=== PATIENT | female | born 1970 | race Caucasian/White ===

== ENCOUNTER 2016-09-16 15:55 | Emergency (ER) | payer BC, OTHER, MEDICARE ==
[~2016-09-16] VITALS: Ht 170.2 cm; Wt 102.1 kg
[~2016-09-16 15:55] MED LIST: /LAMO10TA PO; /METO5TA PO; /ONDA4TA PO; /PREG50CA PO; ABIL10TA PO; ABIL15TA PO; ABIL15TA2 PO; ABIL1TAB7 PO; ABIL2TAB PO; ABIL400I IM; AMBI5TAB PO; AMBI6.25 PO; AMIT PO; ANTI25TA PO; ASCO25TA PO; ATIV0.5T3 PO; AUGM875T27 PO; B-12100010 PO; BUSP15TA47 PO; BUSP1TAB PO; BUSP5TA PO; CARA1TAB2 PO; CLON0.5T PO; COLA50CA3 PO; CYCL5TA PO; CYMB1CAP PO; CYMB60CA3 PO; DEPA500T2 PO; DOCU10ELUD PO; DRIS50002 PO; DULO1CAP3 PO; DULO30CA PO; EFFE150C; FERR140T PO; FERR324T2 PO; FERR325T PO; FLAG500T PO; FLUO20CA8 PO; FLUR15CA14 PO; GABA-283 PO; GABA100C PO; HYDR-3713 PO; HYDR-3716 PO; HYDR-3719 PO; HYDR-4274 PO; HYDR25T PO; HYDRO50TAB PO; IBUP-1114 PO; IRON65TA PO; KLON1TAB PO; LAMI25TA PO; LAMICTAL PO; LAMO10TA PO; LITH1TAB PO; LITH1TAB4 PO; LYRI300C PO; LYRI75CA PO; MELA0.02 PO; MORP15TA2 PO; MORP15TA39 PO; MULTTAB4 PO; NEUR300C PO; NEUR600T; NEURONTIN PO; NICO21DI26 EXT; NORT10CA2 PO; OLAN10TA2 PO; OLAN15TA PO; OLANZAPINE PO; OPAN5TAB3 PO; OXYC5CAP28 PO; OXYC5TAB2 PO; PAXI10TA2 PO; PAXI20TA3 PO; PERC5TAB PO; PERCOCET PO; PRIL40CA PO; PRIM250T5 PO; PRIM50TA6 PO; ROPI1TAB PO; ROZE8TAB PO; TIZA1POW XX; TIZA2CAP3 PO; TRAZ100T4 PO; TRAZ150T PO; TRAZ50TA2 PO; TRAZ50TA4 PO; VALI10TA PO; VALI5TAB; VALI5TAB PO; VENL25TA2 PO; VENL75CA PO; VIST50CA PO; VITA100L SC; VITA50003 PO; VITA500T3 PO; VITA500T53 PO; VITMTA PO; WELL100T PO; WELLTAB PO; XANA0.5T PO; XANA1TAB2 PO; XANA2TAB2 PO; ZOFR4TAB3 PO; ZOLO100T PO; [UNRECOGNIZED DRUG - CODE] PO
[2016-09-16 16:00] VITALS: BP 146/75
[2016-09-16] MEDS ORDERED: ROPI1TAB PO (16:06)
[2016-09-16] MEDS ORDERED: CLON0.5T PO (16:06)
[2016-09-16] MEDS ORDERED: CYCL5TA PO (16:06)
[2016-09-16 17:27] LABS: MEAN CORPUSCULAR HEMOGLOBIN 24.4 pg (27.0-33.0); MEAN CORPUSCULAR VOLUME 78.7 fl (80.0-96.0); RED CELL DISTRIBUTION WIDTH 13.8 % (11.5-14.5)
[2016-09-16 17:44] LABS: CONTROL LINE HCG INT CTR LINE PRESENT
[2016-09-16 17:47] LABS: CONTROL LINE INT CTR LINE PRESENT; METHADONE URINE NEGATIVE (NEGATIVE); TRICYCLIC ANTIDEPRESS URINE POSITIVE (NEGATIVE)
[2016-09-16 18:01] LABS: ALBUMIN 3.6 GM/DL (3.2-5.2); ALBUMIN/GLOBULIN RATIO 1.13 (1.00-1.93); ALKALINE PHOSPHATASE 99 U/L (45-117); ALT/SGPT 32 U/L (12-78); ANION GAP 9 MEQ/L (8-16); AST/SGOT 15 U/L (15-37); BILIRUBIN,DIRECT < 0.1 MG/DL (0.0-0.2); BILIRUBIN,TOTAL 0.2 MG/DL (0.2-1.0); BLOOD UREA NITROGEN 7 MG/DL (7-18); CALCIUM LEVEL 8.6 MG/DL (8.5-10.1); CARBON DIOXIDE LEVEL 25 MEQ/L (21-32); CHLORIDE LEVEL 107 MEQ/L (98-107); GLOMERULAR FILTRATION RATE > 60.0 (>58); GLUCOSE, FASTING 93 MG/DL (70-105); POTASSIUM SERUM 4.1 MEQ/L (3.5-5.1); SODIUM LEVEL 141 MEQ/L (136-145); TOTAL PROTEIN 6.8 GM/DL (6.4-8.2)
== END 2016-09-16 18:45 | disposition home or self-care (01) ==
LOC: M ED 17:32
DX: F43.20 Adjustment disorder, unspecified (principal); F31.9 Bipolar disorder, unspecified; Z98.84 Bariatric surgery status; Z79.899 Other long term (current) drug therapy; F17.210 Nicotine dependence, cigarettes, uncomplicated
CPT/HCPCS: 36415; 80048; 80076; 80306; 84443; 84703; 85027; 99284; G0480

== ENCOUNTER 2016-09-28 17:03 | Emergency (ER) | payer BC, OTHER, MEDICARE ==
[~2016-09-28] VITALS: Ht 170.2 cm; Wt 104.3 kg
[2016-09-28 18:02] LABS: MEAN CORPUSCULAR HEMOGLOBIN 24.7 pg (27.0-33.0); MEAN CORPUSCULAR HGB CONC 31.1 g/dl (32.0-36.5); MEAN CORPUSCULAR VOLUME 79.6 fl (80.0-96.0); RED CELL DISTRIBUTION WIDTH 15.1 % (11.5-14.5); WHITE BLOOD COUNT 7.4 K/mm3 (4.0-10.0)
[2016-09-28 18:36] LABS: METHADONE URINE NEGATIVE (NEGATIVE)
[2016-09-28 18:44] LABS: ALBUMIN 3.5 GM/DL (3.2-5.2); ALBUMIN/GLOBULIN RATIO 1.09 (1.00-1.93); ALKALINE PHOSPHATASE 87 U/L (45-117); ALT/SGPT 16 U/L (12-78); ANION GAP 7 MEQ/L (8-16); AST/SGOT 11 U/L (15-37); BILIRUBIN,DIRECT < 0.1 MG/DL (0.0-0.2); BILIRUBIN,TOTAL 0.2 MG/DL (0.2-1.0); BLOOD UREA NITROGEN 12 MG/DL (7-18); CALCIUM LEVEL 8.1 MG/DL (8.5-10.1); CARBON DIOXIDE LEVEL 25 MEQ/L (21-32); CHLORIDE LEVEL 111 MEQ/L (98-107); CREATININE FOR GFR 0.74 MG/DL (0.55-1.02); GLOMERULAR FILTRATION RATE > 60.0 (>58); GLUCOSE, FASTING 89 MG/DL (70-105); POTASSIUM SERUM 4.2 MEQ/L (3.5-5.1); SODIUM LEVEL 143 MEQ/L (136-145); TOTAL PROTEIN 6.7 GM/DL (6.4-8.2)
[2016-09-28] MEDS ORDERED: OLANZapine 10 MG TAB PO ONE (21:30)
[2016-09-28] MEDS ORDERED: clonazePAM 0.5 MG TAB PO ONE (21:30)
[2016-09-28] MEDS ORDERED: GABAPENTIN 300 MG CAP PO ONE (21:30)
[2016-09-28] MEDS ORDERED: lamoTRIgine 100MG TAB PO ONE (21:30)
[2016-09-29] MEDS ORDERED: GABAPENTIN 300 MG CAP PO ONE (08:00)
[2016-09-29] MEDS ORDERED: lamoTRIgine 100MG TAB PO ONE (08:00)
[2016-09-29] MEDS ORDERED: OLANZapine 10 MG TAB PO ONE (08:00)
[2016-09-29] MEDS ORDERED: clonazePAM 0.5 MG TAB PO ONE (08:00)
[2016-09-29] MEDS ORDERED: FLUoxetine 20 MG CAP PO ONE (08:00)
[2016-09-29 08:29] VITALS: BP 133/67
--- NOTE | 2016-09-29 09:59 | ECGEPIP ---
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
[2016-09-29] MEDS ORDERED: rOPINIRole 1MG TAB PO SCH (21:00)
== END 2016-09-29 08:31 | disposition short-term general hospital (02) ==
LOC: M ED 18:00
DX: R45.851 Suicidal ideations (principal); F32.9 Major depressive disorder, single episode, unspecified; G25.81 Restless legs syndrome; F17.200 Nicotine dependence, unspecified, uncomplicated; Z88.8 Allergy status to other drugs, medicaments and biological substances; Z79.899 Other long term (current) drug therapy
CPT/HCPCS: 80048; 80076; 80306; 84443; 85027; 93005; 99285; G0480

== ENCOUNTER → 2016-11-02 | Outpatient (REF) | payer OTHER ==
[2016-11-02 18:56] LABS: VITAMIN B12 LEVEL 295 PG/ML (247-911)
[2016-11-02 18:57] LABS: ALBUMIN 3.5 GM/DL (3.2-5.2); ALBUMIN/GLOBULIN RATIO 1.09 (1.00-1.93); ALKALINE PHOSPHATASE 97 U/L (45-117); ALT/SGPT 21 U/L (12-78); ANION GAP 5 MEQ/L (8-16); AST/SGOT 15 U/L (15-37); BILIRUBIN,TOTAL 0.2 MG/DL (0.2-1.0); BLOOD UREA NITROGEN 9 MG/DL (7-18); CALCIUM LEVEL 8.5 MG/DL (8.5-10.1); CARBON DIOXIDE LEVEL 26 MEQ/L (21-32); CHLORIDE LEVEL 110 MEQ/L (98-107); CHOLESTEROL LEVEL 182 MG/DL (<200); CREATININE FOR GFR 0.76 MG/DL (0.55-1.02); FREE T4 1.01 NG/DL (0.76-1.46); GLOMERULAR FILTRATION RATE > 60.0 (>58); GLUCOSE, FASTING 93 MG/DL (70-105); POTASSIUM SERUM 4.6 MEQ/L (3.5-5.1); SODIUM LEVEL 141 MEQ/L (136-145); TOTAL PROTEIN 6.7 GM/DL (6.4-8.2); TRIGLYCERIDES LEVEL 83 MG/DL (<150)
[2016-11-02 19:08] LABS: BASO % 0.2 % (0.0-1.0); EOS # 0.1 K/mm3 (0.0-0.50); EOS % 1.3 % (0.0-3.0); LARGE UNSTAINED CELL # 0.1 K/mm3 (0.0-0.4); LARGE UNSTAINED CELL % 1.6 % (0.0-4.0); LYMPH # 1.4 K/mm3 (1.5-4.5); LYMPH % 21.9 % (24.0-44.0); MEAN CORPUSCULAR HEMOGLOBIN 23.4 pg (27.0-33.0); MEAN CORPUSCULAR HGB CONC 29.8 g/dl (32.0-36.5); MEAN CORPUSCULAR VOLUME 78.3 fl (80.0-96.0); MONO # 0.4 K/mm3 (0.0-0.8); MONO % 6.2 % (0.0-5.0); NEUTROPHILS # 4.5 K/mm3 (1.8-7.7); NEUTROPHILS % 68.8 % (36.0-66.0); PLATELET COUNT, AUTOMATED 431 k/mm3 (150-450); RED CELL DISTRIBUTION WIDTH 15.1 % (11.5-14.5); WHITE BLOOD COUNT 6.5 K/mm3 (4.0-10.0)
[2016-11-02 19:12] LABS: ADD MORPHOLOGY? YES
[2016-11-02 22:07] LABS: ANISOCYTOSIS 1+; MICROCYTOSIS 1+
== END ==
LOC: M SFHCCAPE 08:32
PROVIDERS: ATTEND Physician Assistant
DX: Z98.890 Other specified postprocedural states (principal)

== ENCOUNTER → 2016-11-16 | Outpatient (REF) | payer OTHER, MEDICARE ==
[2016-11-16 13:26] LABS: PERCENT SATURATION 6.2 % (13.2-37.4)
== END ==
LOC: M LAB REF 12:14
PROVIDERS: ATTEND Nurse Practitioner Family
DX: K91.2 Postsurgical malabsorption, not elsewhere classified (principal)

== ENCOUNTER 2017-01-18 15:05 | Emergency (ER) | payer BC, OTHER, MEDICARE ==
[~2017-01-18] VITALS: Ht 170.2 cm; Wt 99.1 kg
[~2017-01-18 15:05] MED LIST changes: -ABIL15TA2 PO; +ABIL1TAB12 PO; -ABIL1TAB7 PO; +ABIL20TA5 PO; -AUGM875T27 PO; +AUGM875T28 PO; +CYCL5TAB PO; +FERR1TAB8 PO; -FERR325T PO; +HYDR-3363 PO; -HYDR-4274 PO; -HYDR25T PO; +HYDR50TA70 PO; -MORP15TA39 PO; +MORP1TAB19 PO; +PAXI20TA29 PO; -PRIM250T5 PO; +PRIM250T8 PO; +TRAZ-136 PO; -TRAZ100T4 PO; +TRAZ50TA11 PO; -TRAZ50TA4 PO; +VITA1CAP40 PO; -VITA50003 PO
[2017-01-18] MEDS ORDERED: MIRA0.5T PO (15:17)
[2017-01-18] MEDS ORDERED: NS 1,000 ML IV ONE (16:00)
[2017-01-18] MEDS ORDERED: ONDANSETRON 4MG/2ML VIAL (J2405) IV ONE (16:00)
[2017-01-18] MEDS ORDERED: methylPREDNISolone INJ 125 MG/2 ML VIAL (J2930) IV ONE (16:00)
[2017-01-18 16:42] LABS: BASO % 0.5 % (0.0-1.0); EOS # 0.1 K/mm3 (0.0-0.50); EOS % 1.4 % (0.0-3.0); LARGE UNSTAINED CELL # 0.1 K/mm3 (0.0-0.4); LARGE UNSTAINED CELL % 1.7 % (0.0-4.0); LYMPH # 1.8 K/mm3 (1.5-4.5); LYMPH % 22.9 % (24.0-44.0); MEAN CORPUSCULAR HEMOGLOBIN 23.1 pg (27.0-33.0); MEAN CORPUSCULAR HGB CONC 30.1 g/dl (32.0-36.5); MEAN CORPUSCULAR VOLUME 76.7 fl (80.0-96.0); MONO # 0.4 K/mm3 (0.0-0.8); MONO % 5.2 % (0.0-5.0); NEUTROPHILS # 5.5 K/mm3 (1.8-7.7); NEUTROPHILS % 68.3 % (36.0-66.0); PLATELET COUNT, AUTOMATED 396 k/mm3 (150-450); RED CELL DISTRIBUTION WIDTH 15.8 % (11.5-14.5)
[2017-01-18 16:46] LABS: ANION GAP 7 MEQ/L (8-16); BLOOD UREA NITROGEN 6 MG/DL (7-18); CALCIUM LEVEL 8.4 MG/DL (8.5-10.1); CARBON DIOXIDE LEVEL 23 MEQ/L (21-32); CHLORIDE LEVEL 111 MEQ/L (98-107); CREATININE FOR GFR 0.77 MG/DL (0.55-1.02); GLOMERULAR FILTRATION RATE > 60.0 (>58); GLUCOSE, FASTING 98 MG/DL (70-105); MAGNESIUM LEVEL 2.4 MG/DL (1.8-2.4); POTASSIUM SERUM 3.8 MEQ/L (3.5-5.1); SODIUM LEVEL 141 MEQ/L (136-145)
[2017-01-18 16:54] VITALS: BP 113/63
[2017-01-18] MEDS ORDERED: PRED20TA PO (16:57)
== END 2017-01-18 17:06 | disposition home or self-care (01) ==
LOC: M ED 15:05
DX: G43.909 Migraine, unspecified, not intractable, without status migrainosus (principal); G25.81 Restless legs syndrome; M54.5 Low back pain; F41.9 Anxiety disorder, unspecified; F33.9 Major depressive disorder, recurrent, unspecified; G62.9 Polyneuropathy, unspecified; Z98.84 Bariatric surgery status; Z79.899 Other long term (current) drug therapy; Z88.8 Allergy status to other drugs, medicaments and biological substances; F17.210 Nicotine dependence, cigarettes, uncomplicated
CPT/HCPCS: 80048; 83735; 85025; 96361; 96374; 96375; 99283; J2405; J2930

== ENCOUNTER → 2017-01-21 | Outpatient (CLI) | payer BC, OTHER, MEDICARE ==
[~2017-01-21] MED LIST changes: +MIRA0.5T PO; +PRED20TA PO
[2017-01-21 17:23] LABS: MAGNESIUM LEVEL 2.4 MG/DL (1.8-2.4)
[2017-01-21 22:02] LABS: FOLATE 9.1 NG/ML; VITAMIN B12 LEVEL 152 PG/ML
== END ==
LOC: M WUC 15:07
PROVIDERS: ATTEND Physician Assistant Medical
DX: G62.9 Polyneuropathy, unspecified (principal); M25.50 Pain in unspecified joint

== ENCOUNTER → 2017-01-22 | Outpatient (REF) | payer OTHER, MEDICARE ==
[2017-01-26 08:08] LABS: VITAMIN E LEVEL 7.3 mg/L (5.3-16.8)
== END ==
LOC: M LABWUC 12:38
PROVIDERS: ATTEND Physician Assistant Medical
DX: G62.9 Polyneuropathy, unspecified (principal); M25.50 Pain in unspecified joint

== ENCOUNTER → 2017-04-29 | Outpatient (CLI) | payer BC, OTHER, MEDICARE ==
--- NOTE | 2017-04-29 14:32 | REP ---
Right foot series: Four views. History: Contusion. Findings: Four views of the right foot show overall normal mineralization. There is a small plantar calcaneal spur. There is no visible fracture. No significant soft tissue finding. Impression: No fracture seen. Signed by Greg Cazares MD 04/29/2017 05:11 P
== END ==
LOC: M WUC 13:30
PROVIDERS: ATTEND Physician Assistant
DX: S90.31XA Contusion of right foot, initial encounter (principal); X58.XXXA Exposure to other specified factors, initial encounter; Y93.9 Activity, unspecified; Y92.9 Unspecified place or not applicable; Y99.8 Other external cause status

== ENCOUNTER → 2017-05-05 | Outpatient (CLI) | payer BC, OTHER, MEDICARE ==
--- NOTE | 2017-05-09 23:38 | ECWPNPC ---
PATIENT NAME: ALEXANDRA ORTIZ : 1970 GENDER: FEMALE VISIT DATE: 05/05/2017 DISCHARGE DATE: 05/05/17 1514 VISIT LOCKED DATE TIME: PHYSICIAN: AILYN SILVA RESOURCE: AILYN SILVA REASON FOR APPOINTMENT 1. BACK PAIN HISTORY OF PRESENT ILLNESS FALL RISK SCREENING: SCREENING :NO FALLS IN THE PAST YEAR 47 YEAR OLD FEMALE PATIENT WITH HISTORY OF CHRONIC LOW BACK PAIN. PATIENT DESCRIBES THE PAIN ACHING, THROBBING, SORE, AND HAVING IT ALL THE TIME WITH A PAIN SCORE OF 5-6/10. PATIENT STATES THAT THE PAIN STARTING ROUGHLY 6 MONTHS AGO WITH NO TRAUMA AND S GOTTEN PROGRESSIVELY WORSE. PATIENT STATES THE PATIENT RADIATES TO THE FRONT OF BOTH LEGS. CURRENTLY THE PATIENT IS USING GABAPENTIN AND BACLOFEN. PATIENT REPORTS HAVING A DROP FOOT IN THE PAST. MRS. ORTIZ STATES SHE HAS PERIPHERAL NEUROPATHY BUT AT THIS TIME THEY ARE UNSURE WHAT IS CAUSING THIS. PATIENT REPORTS HAVING SLEEP APNEA AND USING A CPAP AT NIGHT. PATIENT STATES THAT LIFTING AND WALKING INCREASES THE PAIN THE MOST IN THE LOWER BACK AT THIS TIME. PATIENT DENIES UNEXPLAINABLE WEIGHT LOSS, FEVER, CHILLS, NEW CHANGES ON HER URINARY OR BOWEL CONTROL. PAIN SCREENING: PATIENT HAS A COMPLAINT OF ACUTE OR CHRONIC PAIN :YES CURRENT MEDICATIONS TAKING TRAZODONE HCL 50 MG TABLET 1 TABLET AT BEDTIME NEEDED ORALLY ONCE A DAY TAKING KLONOPIN 0.5 MG TABLET 1 TABLET ORALLY TWICE A DAY AND 1 PRN MDD 3 TAKING PROZAC 20 MG CAPSULE 1 CAPSULE IN THE MORNING ORALLY ONCE A DAY TAKING LAMICTAL 150 MG TABLET 1 TABLET ORALLY TWICE A DAY TAKING VOLTAREN 1 % GEL 1 TAB TRANSDERMAL FOUR TIMES DAILY TAKING GABAPENTIN 300 MG CAPSULE 3 TABS ORALLY THREE TIMES A DAY TAKING IBUPROFEN 400 MG TABLET 1 TABLET ORALLY THREE TIMES A DAY PRN PAIN TAKING OLANZAPINE 10 MG TABLET 1 TABLET ORALLY BID TAKING MULTI-VITAMIN TABLET DIRECTED ORALLY ONCE DAILY TAKING FERROUS SULFATE 324 MG TABLET 1 TAB ORALLY DAILY TAKING ERGOCALCIFEROL 52097 UNIT CAPSULE 1 CAPSULE ORALLY ONCE A WEEK TAKING VITAMIN B12 1000 MCG TABLET EXTENDED RELEASE 1 TABLET ORALLY ONCE A DAY TAKING BACLOFEN 10 MG TABLET 1 TABLET WITH FOOD OR MILK ORALLY TWICE DAILY NEEDED TAKING PRAMIPEXOLE DIHYDROCHLORIDE 1.5 MG TABLET 1 TABLET ORALLY BID DISCONTINUED NICODERM CQ 21 MG/24HR PATCH 24 HOUR 1 PATCH TO SKIN TRANSDERMAL ONCE A DAY DISCONTINUED ROPINIROLE HCL 1 MG TABLET TAKE ONE AND ONE-HALF TABLET BY MOUTH AT BEDTIME DISCONTINUED MELOXICAM 7.5 MG TABLET 1-2 TABLETS ORALLY DAILY DISCONTINUED PRAMIPEXOLE DIHYDROCHLORIDE ER 1.5 MG TABLET EXTENDED RELEASE 24 HOUR 1 TABLET ORALLY ONCE A DAY MEDICATION LIST REVIEWED AND RECONCILED WITH THE PATIENT PAST MEDICAL HISTORY ANXIETY DEPRESSION INSOMNIA NEUROPATHY BIPOLAR BACK PAIN ALLERGIES N.K.D.A. SURGICAL HISTORY FOOT SURGURY 03/2011 TUBAL LIGATION 04/2004 GASTRIC BYPASS 07/2011 L FOOT SURGERY 09/2014 LEFT CARPAL TUNNEL AND ULNAR NERVE SURGERY 03/2017 FAMILY HISTORY FATHER: , HEART ATTACK, DIAGNOSED WITH CANCER MOTHER: ALIVE 77 YRS, HISTORY OF BORDERLINE DIABETES SIBLINGS: ALIVE, MENTAL HEALTH SIDORDERRS, TYPE 1 DIABETIC, HEART ATTACK AND STROKE SON(S): ALIVE DAUGHTER(S): ALIVE 1 BROTHER(S) . 1 SON(S) , 1 DAUGHTER(S) - HEALTHY. FATHER HAS BEEN DX WITH STAGE 4 LUNG CANCER AUG 2016 1 BROTHER WITH HEART PROBLEMS,DIABETIES, STROKE. SOCIAL HISTORY GENERAL: TOBACCO USE ARE YOU A:CURRENT SMOKER ARE YOU INTERESTED IN QUITTING?NOT READY TO QUIT COUNSELED THE PATIENT ON SMOKING EFFECTS, EDUCATION [id number]/18/2017 HOW MANY CIGARETTES A DAY DO YOU SMOKE?11-20 HOW SOON AFTER YOU WAKE UP DO YOU SMOKE YOUR FIRST CIGARETTE?WITHIN 5 MIN HOW OFTEN DO YOU SMOKE CIGARETTES?EVERY DAY PATIENT COUNSELED ON THE DANGERS OF TOBACCO USE AND URGED TO QUIT:05/05/2017 ADDITIONAL FINDINGS: TOBACCO USER NO VAPORNO E-CIGARETTENO BMI CARE GOAL FOLLOW-UP ABOVE NORMAL BMI FOLLOW-UPDIETARY MANAGEMENT EDUCATION, GUIDANCE, AND COUNSELING ALCOHOL SCREENING DID YOU HAVE A DRINK CONTAINING ALCOHOL IN THE PAST YEAR?YES POINTS1 INTERPRETATIONNEGATIVE HOW OFTEN DID YOU HAVE A DRINK CONTAINING ALCOHOL IN THE PAST YEAR?MONTHLY OR LESS (1 POINT) HOW MANY DRINKS DID YOU HAVE ON A TYPICAL DAY WHEN YOU WERE DRINKING IN THE PAST YEAR?1 OR 2 (0 POINTS) HOW OFTEN DID YOU HAVE SIX OR MORE DRINKS ON ONE OCCASION IN THE PAST YEAR?NEVER (0 POINTS) RECREATIONAL DRUG USE DRUG USE?NO CAFFEINE CAFFEINE USE?YES HOW OFTEN AND HOW MUCH? 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 DIET: REGULAR . EXERCISE: NO REGULAR EXERCISE. OTHERS AT HOME: SPOUSE , CHILDREN. CAODAISM CATHLOIC. LANGUAGE KINYARWANDA. EDUCATION LEVEL OF EDUCATION:[employer] IN SOCIOLOGY LEARNING BARRIERS / SPECIAL NEEDS CHANGE FROM LAST VISIT?NO 11/04/2016 BARRIERS TO LEARNING?NO HEARING IMPAIRED?YES VISION IMPAIRED?YES :CORRECTIVE LENSES COGNITIVELY IMPAIRED?NO READINESS TO LEARN?YES LEARNING PREFERENCES?NO LEARNING CAPABILITIES PRESENT?YES EMOTIONAL BARRIERS?YES SPECIAL DEVICES?NO HRIS ANALYST NEEDED?NO NEW PATIENT PAIN DIARY FROM 0-10, WHAT NUMBER IS YOUR PAIN TODAY? 6 NEUROPATHY, UNCHANGED. PAIN CLINIC PFS, CLERGY, PUBLIC HEALTH REFERRALS PFS REFERRAL NEEDED?NO CLERGY REFERRAL NEEDED?NO PUBLIC HEALTH REFERRAL NEEDED?NO HAS THE PATIENT BEEN EDUCATED REGARDING HIS/HER PLAN OF CARE?YES HAS THE PATIENT BEEN EDUCATED REGARDING PAIN, THE RISK FOR PAIN, THE IMPORTANCE OF EFFECTIVE PAIN MANAGEMENT, AND THE PAIN ASSESSMENT PROCESS?YES ADVANCE DIRECTIVES HEALTH CARE PROXY?NO WOULD YOU LIKE MORE INFORMATION?NO DO YOU HAVE A DNR?NO WOULD YOU LIKE MORE INFORMATION?NO LIVING WILL?NO WOULD YOU LIKE MORE INFORMATION?NO POWER OF MANAGER FAST FOOD?NO WOULD YOU LIKE MORE INFORMATION?NO TRAVEL OUTSIDE US: NONE. DOMESTIC VIOLENCE DO YOU FEEL SAFE IN YOUR ENVIRONMENT?YES IAIN MUNGUIA. HOSPITALIZATION/MAJOR DIAGNOSTIC PROCEDURE DEHYDRATION 11/2011 STOMACH ULCER 01/2012 MENTAL HEALTH 02/2008 DEHYDRATION/ ABD PAIN 05/18/12 MENTAL HEALTH 05/30-22 1 WEEK ADMISSSION TO BEHAVIORAL HEALTH 01/2014 LITHIUM TOXICITY 11/2014 MENTAL HEALTH X 2 DAYS 12/2014 MENTAL HEALTH 07/2015 [facility] HEALTH 01/2016 [facility] ADMISSION [place] 2016 REVIEW OF SYSTEMS REVIEWED BY: PROVIDER: AILYN SILVA MD . CONSTITUTIONAL: ANY CHANGE IN YOUR MEDICAL CONDITION? NO . CHILLS NO . FEVER NO . INFECTION: DO YOU HAVE NEW INFECTIONS? NO . DO YOU HAVE HISTORY OF MRSA? NO . MUSCULOSKELETAL: ANY NEW PATTERNS OF PAIN OR NUMBNESS? NO . SYTEMIC LUPUS NO . GASTROENTEROLOGY: ANY NEW CHANGE IN BOWEL CONTROL? NO . BARRETTS ESOPHAGUS NO . CIRRHOSIS NO . HEPATITIS NO . LIVER FAILURE NO . ACID REFLUX NO . UNEXPLAINED WEIGHT LOSS NO . GENITOURINARY: ANY NEW CHANGE IN BLADDER CONTROL? YES, ALWAYS HAS THE FEELING SHE NEEDS TO URINATE. . IS THERE A CHANCE YOU COULD BE ? NO . HEMATOLOGY/LYMPH: DO YOU TAKE ANY BLOOD THINNERS? (FOR EXAMPLE- COUMADIN, PLAVIX, AGGRENOX, PLATEL, PRADAXA, OR XARELTO) NO . WHEN WAS YOUR LAST DOSE? DATE: TIME: . LOW PLATELET COUNT NO . SICKLE CELL DISEASE NO . VON WILLIEBRANDS NO . FACTOR V LEIDEN NO . THALLASEMIA NO . ANEMIA NO . EASY BRUISING NO . NEUROLOGY: HAVE YOU FALLEN IN THE PAST 6 MONTHS? NO . ANY NEW EXTREMITY NUMBNESS OR WEAKNESS? NO . HEAD INJURY NO . DEMENTIA NO . CEREBRAL PALSY NO . MULTIPLE SCLEROSIS NO . DIZZINESS NO . HEADACHE ADMITS TO FREQUENT HEADACHES IN THE PAST THE HAVE SUBSIDED OVER THE PAST COUPLE OF MONTHS . STROKES NO . VERTIGO NO . CARDIOLOGY: DO YOU HAVE A PACEMAKER OR DEFIBRILLATOR? NO . ANGINA NO . HEART ATTACK NO . HEART SURGERY NO . CONGESTIVE HEART FAILURE/FLUID OVERLOAD NO . CHEST PAIN NO . HIGH BLOOD PRESSURE NO . IRREGULAR HEART BEAT NO . RESPIRATORY: HAVE YOU BEEN SICK IN THE PAST WEEK? NO . FEVER NO . FLU LIKE SYMPTOMS? NO . CPAP DIAGNOSED WITH DAVID BUT UNABLE TO USE CPAP AT THIS TIME DUE TO MASK MAKING HER CLAUSTROPHOBIC . BYPAP NO . ASTHMA NO . EMPHYSEMA NO . CHRONIC LUNG DISEASES NO . SHORTNESS OF BREATH ON EXERTION NO . COUGH NO . SNORING YES . INTEGUMENTARY: DO YOU HAVE ANY RASHES OR OPEN SORES? NO . ALLERGIC/IMMUNO: ARE YOU ALLERGIC TO SHELLFISH OR IV DYE? NO . ANY NEW ALLERGIES? NO . PSYCHIATRIC: DO YOU HAVE THOUGHTS OF HURTING YOURSELF OR SOMEONE ELSE? NO . ARE YOU ABUSED, NEGLECTED, OR IN AN UNSAFE ENVIRONMENT? NO . ENDOCRINOLOGY: ARE YOU DIABETIC? NO . THYROID DISORDER YES, HAS NODULE ON THYROID--BEING FOLLOWED BY DR. Remington SINGH . OTHER: DO YOU NEED ANY PRESCRIPTIONS? NO . IF YES, PLEASE LIST: ____ . ANY NEW PROBLEMS WITH YOUR MEDICATIONS? NO . WHEN DID YOU LAST EAT? ____ . WHEN DID YOU LAST DRINK? ____ . WHAT DID YOU LAST DRINK? ____ . NAME OF PERSON DRIVING YOU HOME? ____ . DO YOU HAVE ANY OTHER QUESTIONS OR CONCERNS NO . VITAL SIGNS WT 219 LBS, HT 67 IN, BMI 34.30 INDEX, BP 117/58 MM HG, HR 101 /MIN, RR 18 /MIN, TEMP 97.7 F, OXYGEN SAT % 96%, SAFE IN ENV? (Y/N) Y, NA INITIALS AW 1358, REVIEWED BY: EMILE LMP: 04/27/17. EXAMINATION : PATIENT IS ALERT O X 3 AND COOPERATIVE. TENDERNESS IN THE LOWER BACK AND PARASPINAL MUSCLE GROUP. PATIENT LIMPS FROM RIGHT FOOT DUE TO SPRAIN. PATIENT ABLE TO FLEX THE BACK 50 DEGREES AND EXTEND 10 DEGREES. RIGHT AND LEFT LEG POSITIVE FOR PAIN AT 45 DEGREES IN THE STRAIGHT LEG RAISES. RIGHT LEG WEAKER THEN THE LEFT AT EXTENSION AND FLEXION. MRI OF THE LUMBAR SPINE DONE ON 02/10/17 SHOWS MILD DEGENERATIVE DISC DISEASE AT L3-L4 AND L4-L5, DISC BULGES AT L3-L4 AND L4-L5, AND FACET ATROPHY. ASSESSMENTS INTERVERTEBRAL DISC DISORDER WITH RADICULOPATHY OF LUMBAR REGION - M51.16 (PRIMARY) MYALGIA - M79.1 TREATMENT INTERVERTEBRAL DISC DISORDER WITH RADICULOPATHY OF LUMBAR REGION NOTES: LUMBAR EPIDURAL,WHAT IS LUMBAR EPIDURAL INJECTION? MATERIAL WAS PRINTED,LUMBAR EPIDURAL INJECTION: YOUR PROCEDURE MATERIAL WAS PRINTED. CLINICAL NOTES: WE DISCUSSED SEVERAL ISSUES WITH MRS. ORTIZ'S PAIN MANAGEMENT CASE. AT THIS TIME THE PATIENT WILL CONTINUE WITH THE SAME MEDICATION REGIME BEFORE. WE DISCUSSED SEVERAL INTERVENTIONS THAT MAY AID THE PATIENT IN PAIN RELIEF AT THIS TIME. AFTER DISCUSSED THE PATIENT WOULD LIKE TO PROCEED WITH THE LUMBAR EPIDURAL DUE TO THE PAIN DOWN THE LEGS. WE DISCUSSED THE RISKS, BENEFITS, AND ALTNERATIVES OF THE INJECTION AND THE PATIENT WOULD LIKE TO PROCEED AT THIS TIME. INSTRUCTIONS WERE GIVEN, QUESTIONS WERE ANSWERED, PATIENT REPORTS UNDERSTANDING AND AGREES WITH THE PLAN. I, LOGAN ODOM, DOCUMENTED THE ABOVE INFORMATION ACTING A SCRIBE FOR DR. SILVA. I HAVE REVIEWED THE ABOVE DOCUMENT, WRITTEN BY LOGAN NAIR AND I VERIFY THAT IT IS ACCURATE. DEAR DR. FRAZIER:THANK YOU FOR YOUR KIND REFERRAL OF MRS. ORTIZ. IF YOU WANT TO DISCUSS HER CASE WITH ME PLEASE CALL ME AT THE PAIN CENTER AT [phone]. SINCERELY,AILYN SILVA, [facility]. PROCEDURE CODES FA211 ESTABILISHED PATIENT [facility] FACILITY CHARGE G8427 DOC MEDS VERIFIED W/PT OR RE [id number] PAIN ASSESS POS TOOL F/U PLAN DOC DISPOSITION & COMMUNICATION FOLLOW UP KELLEE MARQUEZ APPROVAL ELECTRONICALLY SIGNED BY AILYN SILVA MD ON 05/09/2017 AT 12:38 PM EDT DISCLAIMER : THIS IS A VISIT SUMMARY EXTRACTED FROM THE [employer] CHART. IT IS NOT A COPY OF THE [employer] PROGRESS NOTE. CLARA
== END ==
LOC: M PAIN 14:00
PROVIDERS: ATTEND Anesthesiology
DX: G89.29 Other chronic pain (principal); M51.16 Intervertebral disc disorders with radiculopathy, lumbar region; M79.1 Myalgia; F17.210 Nicotine dependence, cigarettes, uncomplicated; F31.81 Bipolar II disorder; G60.0 Hereditary motor and sensory neuropathy; G25.81 Restless legs syndrome; D50.9 Iron deficiency anemia, unspecified; E55.9 Vitamin D deficiency, unspecified; E07.9 Disorder of thyroid, unspecified; Z79.1 Long term (current) use of non-steroidal anti-inflammatories (NSAID); Z79.899 Other long term (current) drug therapy

== ENCOUNTER → 2017-05-11 | Outpatient (CLI) | payer BC, OTHER, MEDICARE ==
[~2017-05-11] MED LIST changes: +ISOVUE-M 300 61% 15ML VIAL (Q9967) As Ordered ONE; +LIDOCAINE 1% SDV INJ 30 ML VIAL As Ordered ONE; +diazePAM 5 MG TAB As Ordered ONE; +methylPREDNISolone SUSP 40 MG/ML (DEPO-medrol) VIAL (J1030) As Ordered ONE; +oxyCODONE 5MG TAB As Ordered ONE
--- NOTE | 2017-05-11 13:35 | REP ---
Partial lumbar spine series: Four views . History: Injection procedure for pain. 17 seconds of fluoroscopy time is reported. Findings: A sequence of four fluoroscopically obtained last image hold procedural spot radiographs of the lumbar spine document needle position and contrast injection associated with injection procedure. Signed by Greg Cazares MD 05/11/2017 01:27 P
--- NOTE | 2017-05-11 23:47 | ECWPNPC ---
PATIENT NAME: ALEXANDRA ORTIZ : 1970 GENDER: FEMALE VISIT DATE: 05/11/2017 DISCHARGE DATE: 05/11/17 1122 VISIT LOCKED DATE TIME: PHYSICIAN: AILYN SILVA RESOURCE: AILYN SILVA REASON FOR APPOINTMENT 1. LESI HISTORY OF PRESENT ILLNESS HISTORY OF PRESENT ILLNESS: PAIN THE PATIENT DESCRIBES THE PAIN... FALL RISK SCREENING: SCREENING :NO FALLS IN THE PAST YEAR CURRENT MEDICATIONS TAKING TRAZODONE HCL 50 MG TABLET 1 TABLET AT BEDTIME NEEDED ORALLY ONCE A DAY, NOTES: 05-10-172099 TAKING KLONOPIN 0.5 MG TABLET 1 TABLET ORALLY TWICE A DAY AND 1 PRN MDD 3, NOTES: 05-10-17899 TAKING PROZAC 20 MG CAPSULE 1 CAPSULE IN THE MORNING ORALLY ONCE A DAY, NOTES: 05-10-17899 TAKING LAMICTAL 150 MG TABLET 1 TABLET ORALLY TWICE A DAY, NOTES: 05-10-172099 TAKING VOLTAREN 1 % GEL 1 TAB TRANSDERMAL FOUR TIMES DAILY, NOTES: NOT LATELY TAKING GABAPENTIN 300 MG CAPSULE 3 TABS ORALLY THREE TIMES A DAY, NOTES: 05-10-172099 TAKING IBUPROFEN 400 MG TABLET 1 TABLET ORALLY THREE TIMES A DAY PRN PAIN, NOTES: 05-10-172099 TAKING OLANZAPINE 10 MG TABLET 1 TABLET ORALLY BID, NOTES: 05-10-172099 TAKING MULTI-VITAMIN TABLET DIRECTED ORALLY ONCE DAILY, NOTES: 05-10-17899 TAKING FERROUS SULFATE 324 MG TABLET 1 TAB ORALLY DAILY, NOTES: 05-10-17899 TAKING ERGOCALCIFEROL 64484 UNIT CAPSULE 1 CAPSULE ORALLY ONCE A WEEK, NOTES: 04-27-17899 TAKING VITAMIN B12 1000 MCG TABLET EXTENDED RELEASE 1 TABLET ORALLY ONCE A DAY, NOTES: 05-10-172099 TAKING BACLOFEN 10 MG TABLET 1 TABLET WITH FOOD OR MILK ORALLY TWICE DAILY NEEDED, NOTES: 05-10-17899 TAKING PRAMIPEXOLE DIHYDROCHLORIDE 1.5 MG TABLET 1 TABLET ORALLY BID, NOTES: 05-10-172099 MEDICATION LIST REVIEWED AND RECONCILED WITH THE PATIENT PAST MEDICAL HISTORY ANXIETY DEPRESSION INSOMNIA NEUROPATHY BIPOLAR BACK PAIN ALLERGIES N.K.D.A. SURGICAL HISTORY FOOT SURGURY 03/2011 TUBAL LIGATION 04/2004 GASTRIC BYPASS 07/2011 L FOOT SURGERY 09/2014 LEFT CARPAL TUNNEL AND ULNAR NERVE SURGERY 03/2017 HOSPITALIZATION/MAJOR DIAGNOSTIC PROCEDURE DEHYDRATION 11/2011 STOMACH ULCER 01/2012 MENTAL HEALTH 02/2008 DEHYDRATION/ ABD PAIN 05/18/12 MENTAL HEALTH 05/30- 1 WEEK ADMISSSION TO BEHAVIORAL HEALTH 01/2014 LITHIUM TOXICITY 11/2014 MENTAL HEALTH X 2 DAYS 12/2014 MENTAL HEALTH 07/2015 [facility] MENTAL HEALTH 01/2016 BEHAVIORAL HEALTH ADMISSION [place] 2016 REVIEW OF SYSTEMS REVIEWED BY: PROVIDER: . CONSTITUTIONAL: ANY CHANGE IN YOUR MEDICAL CONDITION? NO . CHILLS NO . FEVER NO . INFECTION: DO YOU HAVE NEW INFECTIONS? NO . DO YOU HAVE HISTORY OF MRSA? NO . MUSCULOSKELETAL: ANY NEW PATTERNS OF PAIN OR NUMBNESS? NO . GASTROENTEROLOGY: ANY NEW CHANGE IN BOWEL CONTROL? NO . GENITOURINARY: ANY NEW CHANGE IN BLADDER CONTROL? NO . IS THERE A CHANCE YOU COULD BE ? NO . HEMATOLOGY/LYMPH: DO YOU TAKE ANY BLOOD THINNERS? (FOR EXAMPLE- COUMADIN, PLAVIX, AGGRENOX, PLATEL, PRADAXA, OR XARELTO) NO . WHEN WAS YOUR LAST DOSE? DATE: TIME: . NEUROLOGY: HAVE YOU FALLEN IN THE PAST 6 MONTHS? NO . ANY NEW EXTREMITY NUMBNESS OR WEAKNESS? NO . CARDIOLOGY: DO YOU HAVE A PACEMAKER OR DEFIBRILLATOR? NO . RESPIRATORY: HAVE YOU BEEN SICK IN THE PAST WEEK? NO . FEVER NO . FLU LIKE SYMPTOMS? NO . COUGH NO . INTEGUMENTARY: DO YOU HAVE ANY RASHES OR OPEN SORES? NO . ALLERGIC/IMMUNO: ARE YOU ALLERGIC TO SHELLFISH OR IV DYE? NO . ANY NEW ALLERGIES? NO . PSYCHIATRIC: DO YOU HAVE THOUGHTS OF HURTING YOURSELF OR SOMEONE ELSE? NO . ARE YOU ABUSED, NEGLECTED, OR IN AN UNSAFE ENVIRONMENT? NO . ENDOCRINOLOGY: ARE YOU DIABETIC? NO . OTHER: DO YOU NEED ANY PRESCRIPTIONS? NO . IF YES, PLEASE LIST: ____ . ANY NEW PROBLEMS WITH YOUR MEDICATIONS? NO . WHEN DID YOU LAST EAT? ____LAZST NIGHT 7 PM . WHEN DID YOU LAST DRINK? ____LAST NIGHT 7PM . WHAT DID YOU LAST DRINK? ____WATER . NAME OF PERSON DRIVING YOU HOME? ____MONICA ORTIZ . DO YOU HAVE ANY OTHER QUESTIONS OR CONCERNS NO . VITAL SIGNS WT 219 LBS, HT 67 IN, BMI 34.30 INDEX, BP 90/53 MM HG, HR 95 /MIN, RR 18 /MIN, TEMP 98.6 F, OXYGEN SAT % 98%, NA INITIALS AW 1004LET NURSE KNOW ABOUT BP. ASSESSMENTS INTERVERTEBRAL DISC DISORDER WITH RADICULOPATHY OF LUMBAR REGION - M51.16 (PRIMARY) PROCEDURES PRE PROCEDURE DIAGNOSIS LUMBAR DISC DISORDER WITH RADICULOPATHY POST PROCEDURE DIAGNOSIS LUMBAR DISC DISORDER WITH RADICULOPATHY PROCEDURE LUMBAR EPIDURAL STEROID INJECTION UNDER FLUOROSCOPIC GUIDANCE SURGEON DR. AILYN SILVA RUBY ON RAILS DEVELOPER NONE ANESTHESIA LOCAL PRE PROCEDURE NOTE THE PATIENT HAS A HISTORY OF CHRONIC LOW BACK PAIN. I EVALUATE THE PATIENT AND REVIEWED THE CHART. I WENT OVER THE RISKS, ALTERNATIVES, AND BENEFITS ASSOCIATED WITH THIS PROCEDURE. THE PATIENT WOULD LIKE TO PROCEED AND GIVE CONSENT TO PERFORMED THE PROCEDURE. THE PATIENT DENIES UNEXPLAINABLE WEIGHT LOSS, FEVER, CHILLS, OR NEW CHANGES IN URINARY OR BOWEL CONTROL. DESCRIPTION OF PROCEDURE THE PATIENT WAS BROUGHT TO THE PROCEDURE ROOM AND PLACED IN THE PRONE POSITION. THE LUMBOSACRAL AREA WAS CLEANED WITH BETADINE SOLUTION AND DRAPED ASEPTICALLY. THE PROCEDURE WAS DONE UNDER STERILE CONDITIONS. I CHECKED LATERALITY AND THE LEVEL WHERE THE PROCEDURE WAS GOING TO BE PERFORMED WITH THE PATIENT AND THE SUPPORTING STAFF AT THE MOMENT OF THE TIME OUT IN THE PROCEDURE ROOM. UNDER FLUOROSCOPIC GUIDANCE, THE TARGET POINT WAS SELECTED AT THE INTERLAMINAR LEVEL OF L4-L5. LIDOCAINE WAS USED TO NUMB THE SKIN AND THE SUBCUTANEOUS TISSUE BELOW IT. EPIDURAL TUOHY NEEDLE, 17-GAUGE, WAS ADVANCED UNDER FLUOROSCOPIC GUIDANCE AND FOLLOWING PATIENT FEEDBACK UNTIL THE EPIDURAL SPACE WAS REACHED, 7 CM DEEP INTO THE SKIN BY THE LOSS OF RESISTANCE TECHNIQUE. ISOVUE M DYE 30%, 0.25 ML, WAS INJECTED SHOWING ADEQUATE SPREAD OF THE DYE. THEN, A SOLUTION OF 3 ML OF NORMAL SALINE WITH DEPO-MEDROL 60 MG WAS INJECTED SLOWLY FOLLOWING PATIENT FEEDBACK. THERE WAS NO EVIDENCE OF BLOOD, PARESTHESIA OR CEREBROSPINAL FLUID DURING THE PROCEDURE. THE PATIENT WAS SENT TO THE RECOVERY ROOM. THE PATIENT WAS MOVING THE EXTREMITIES AND DOING WELL. THERE WAS NO COMPLICATION DURING THE PROCEDURE. FLUOROSCOPY TIME WAS 17 SECONDS. POST PROCEDURE NOTE THE PATIENT WILL BE SEEN IN A FOLLOW UP IN THE NEXT FEW WEEKS. INSTRUCTIONS WERE GIVEN, QUESTIONS WERE ANSWERED, AND THE PATIENT EXPRESSED UNDERSTANDING AND AGREES WITH THE PLAN. I, LOGAN ODOM, DOCUMENTED THE ABOVE INFORMATION ACTING A SCRIBE FOR DR. SILVA. I HAVE REVIEWED THE ABOVE DOCUMENT, WRITTEN BY LOGAN NAIR AND I VERIFY THAT IT IS ACCURATE DIAGNOSTIC IMAGING [facility] FLUORO GUIDE SPINE INJECTION (PAIN)[id number] PROCEDURE CODES 54722 LUMBAR/SACRAL W/ IMAGING 6045F RADXPS IN END [id number] PXD DISPOSITION & COMMUNICATION FOLLOW UP 3 WEEKS ELECTRONICALLY SIGNED BY AILYN SILVA MD ON 05/11/2017 AT 05:52 PM EDT DISCLAIMER : THIS IS A VISIT SUMMARY EXTRACTED FROM THE [employer] CHART. IT IS NOT A COPY OF THE [employer] PROGRESS NOTE. CLARA
== END ==
LOC: M PAIN 10:15
PROVIDERS: ATTEND Anesthesiology
DX: G89.29 Other chronic pain (principal); M51.16 Intervertebral disc disorders with radiculopathy, lumbar region; F31.81 Bipolar II disorder; G25.81 Restless legs syndrome; D50.9 Iron deficiency anemia, unspecified; E55.9 Vitamin D deficiency, unspecified; F41.9 Anxiety disorder, unspecified; Z79.1 Long term (current) use of non-steroidal anti-inflammatories (NSAID); Z79.899 Other long term (current) drug therapy
CPT/HCPCS: 62323; J1030; Q9967

== ENCOUNTER → 2017-06-03 | Outpatient (CLI) | payer OTHER, MEDICARE ==
[~2017-06-03] MED LIST changes: -ISOVUE-M 300 61% 15ML VIAL (Q9967) As Ordered ONE; -LIDOCAINE 1% SDV INJ 30 ML VIAL As Ordered ONE; -diazePAM 5 MG TAB As Ordered ONE; -methylPREDNISolone SUSP 40 MG/ML (DEPO-medrol) VIAL (J1030) As Ordered ONE; -oxyCODONE 5MG TAB As Ordered ONE
--- NOTE | 2017-06-04 00:40 | ECWPNPC ---
PATIENT NAME: ALEXANDRA ORTIZ : 1970 GENDER: FEMALE VISIT DATE: 06/03/2017 DISCHARGE DATE: 06/03/17 1053 VISIT LOCKED DATE TIME: PHYSICIAN: DHIRAJ GALVAN RESOURCE: DHIRAJ GALVAN REASON FOR APPOINTMENT 1. POST PROCEDURE HISTORY OF PRESENT ILLNESS HISTORY OF PRESENT ILLNESS: HERE FOR F/U OF CHRONIC LOW BACK PAIN.RATING PAIN VAS 6/10.PAIN IS LOCATED ACROSS LOW BACK WITH RADIATION INTO ANTERIOR THIGHS.HAD LESI L4/5 ON 05-11-17.REPORTING 3 WEEKS IMPROVEMENT THEN PAIN GRADUALLY RETURNED TO BASELINE.RATING PAIN VAS 6/10 TODAY.REPORTING DIFFICULTY WITH SLEEP DUE TO LOW BACK PAIN. PAIN THE PATIENT DESCRIBES THE PAIN... FALL RISK SCREENING: SCREENING :NO FALLS IN THE PAST YEAR CURRENT MEDICATIONS TAKING TRAZODONE HCL 50 MG TABLET 1 TABLET AT BEDTIME NEEDED ORALLY ONCE A DAY TAKING KLONOPIN 0.5 MG TABLET 1 TABLET ORALLY TWICE A DAY AND 1 PRN MDD 3 TAKING PROZAC 20 MG CAPSULE 1 CAPSULE IN THE MORNING ORALLY ONCE A DAY TAKING LAMICTAL 150 MG TABLET 1 TABLET ORALLY TWICE A DAY TAKING VOLTAREN 1 % GEL 1 TAB TRANSDERMAL FOUR TIMES DAILY TAKING GABAPENTIN 300 MG CAPSULE 3 TABS ORALLY THREE TIMES A DAY TAKING IBUPROFEN 400 MG TABLET 1 TABLET ORALLY THREE TIMES A DAY PRN PAIN TAKING OLANZAPINE 10 MG TABLET 1 TABLET ORALLY BID TAKING MULTI-VITAMIN TABLET DIRECTED ORALLY ONCE DAILY TAKING FERROUS SULFATE 324 MG TABLET 1 TAB ORALLY DAILY TAKING ERGOCALCIFEROL 13189 UNIT CAPSULE 1 CAPSULE ORALLY ONCE A WEEK TAKING VITAMIN B12 1000 MCG TABLET EXTENDED RELEASE 1 TABLET ORALLY ONCE A DAY TAKING BACLOFEN 10 MG TABLET 1 TABLET WITH FOOD OR MILK ORALLY TWICE DAILY NEEDED TAKING PRAMIPEXOLE DIHYDROCHLORIDE 1.5 MG TABLET 1 TABLET ORALLY BID PAST MEDICAL HISTORY ANXIETY DEPRESSION INSOMNIA NEUROPATHY BIPOLAR BACK PAIN ALLERGIES N.K.D.A. SURGICAL HISTORY FOOT SURGURY 03/2011 TUBAL LIGATION 04/2004 GASTRIC BYPASS 07/2011 L FOOT SURGERY 09/2014 LEFT CARPAL TUNNEL AND ULNAR NERVE SURGERY 03/2017 SOCIAL HISTORY GENERAL: TOBACCO USE ARE YOU A:CURRENT SMOKER ARE YOU INTERESTED IN QUITTING?NOT READY TO QUIT COUNSELED THE PATIENT ON SMOKING EFFECTS, EDUCATION [id number]/16/2017 HOW MANY CIGARETTES A DAY DO YOU SMOKE?11-20 HOW SOON AFTER YOU WAKE UP DO YOU SMOKE YOUR FIRST CIGARETTE?WITHIN 5 MIN HOW OFTEN DO YOU SMOKE CIGARETTES?EVERY DAY PATIENT COUNSELED ON THE DANGERS OF TOBACCO USE AND URGED TO QUIT:06/03/2017 ADDITIONAL FINDINGS: TOBACCO USER NO VAPORNO E-CIGARETTENO BMI CARE GOAL FOLLOW-UP ABOVE NORMAL BMI FOLLOW-UPDIETARY MANAGEMENT EDUCATION, GUIDANCE, AND COUNSELING ALCOHOL SCREENING DID YOU HAVE A DRINK CONTAINING ALCOHOL IN THE PAST YEAR?YES POINTS1 INTERPRETATIONNEGATIVE HOW OFTEN DID YOU HAVE A DRINK CONTAINING ALCOHOL IN THE PAST YEAR?MONTHLY OR LESS (1 POINT) HOW MANY DRINKS DID YOU HAVE ON A TYPICAL DAY WHEN YOU WERE DRINKING IN THE PAST YEAR?1 OR 2 (0 POINTS) HOW OFTEN DID YOU HAVE SIX OR MORE DRINKS ON ONE OCCASION IN THE PAST YEAR?NEVER (0 POINTS) RECREATIONAL DRUG USE DRUG USE?NO CAFFEINE CAFFEINE USE?YES HOW OFTEN AND HOW MUCH? 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 DIET: REGULAR . EXERCISE: NO REGULAR EXERCISE. OTHERS AT HOME: SPOUSE , CHILDREN. LATTER-DAY CATHLOIC. LANGUAGE ARMENIAN. EDUCATION LEVEL OF EDUCATION:[employer] SOCIOLOGY LEARNING BARRIERS / SPECIAL NEEDS CHANGE FROM LAST VISIT?NO 11/04/2016 BARRIERS TO LEARNING?NO HEARING IMPAIRED?YES VISION IMPAIRED?YES :CORRECTIVE LENSES COGNITIVELY IMPAIRED?NO READINESS TO LEARN?YES LEARNING PREFERENCES?NO LEARNING CAPABILITIES PRESENT?YES EMOTIONAL BARRIERS?YES SPECIAL DEVICES?NO DIE FORGER NEEDED?NO NEW PATIENT PAIN DIARY FROM 0-10, WHAT NUMBER IS YOUR PAIN TODAY? 6 NEUROPATHY, UNCHANGED. PAIN CLINIC PFS, CLERGY, PUBLIC HEALTH REFERRALS PFS REFERRAL NEEDED?NO CLERGY REFERRAL NEEDED?NO PUBLIC HEALTH REFERRAL NEEDED?NO HAS THE PATIENT BEEN EDUCATED REGARDING HIS/HER PLAN OF CARE?YES HAS THE PATIENT BEEN EDUCATED REGARDING PAIN, THE RISK FOR PAIN, THE IMPORTANCE OF EFFECTIVE PAIN MANAGEMENT, AND THE PAIN ASSESSMENT PROCESS?YES ADVANCE DIRECTIVES HEALTH CARE PROXY?NO WOULD YOU LIKE MORE INFORMATION?NO DO YOU HAVE A DNR?NO WOULD YOU LIKE MORE INFORMATION?NO LIVING WILL?NO WOULD YOU LIKE MORE INFORMATION?NO POWER OF ASSISTANT?NO WOULD YOU LIKE MORE INFORMATION?NO TRAVEL OUTSIDE US: NONE. DOMESTIC VIOLENCE DO YOU FEEL SAFE IN YOUR ENVIRONMENT?YES IAIN MUNGUIA. HOSPITALIZATION/MAJOR DIAGNOSTIC PROCEDURE DEHYDRATION 11/2011 STOMACH ULCER 01/2012 MENTAL HEALTH 02/2008 DEHYDRATION/ ABD PAIN 05/18/12 MENTAL HEALTH 05/30- 1 WEEK ADMISSSION TO BEHAVIORAL HEALTH 01/2014 LITHIUM TOXICITY 11/2014 MENTAL HEALTH X 2 DAYS 12/2014 MENTAL HEALTH 07/2015 [facility] 01/2016 BEHAVIORAL HEALTH ADMISSION NEAR [facility] 2016 REVIEW OF SYSTEMS REVIEWED BY: PROVIDER: DHIRAJ MELENDEZ . CONSTITUTIONAL: ANY CHANGE IN YOUR MEDICAL CONDITION? NO . CHILLS NO . FEVER NO . INFECTION: DO YOU HAVE NEW INFECTIONS? NO . DO YOU HAVE HISTORY OF MRSA? NO . MUSCULOSKELETAL: ANY NEW PATTERNS OF PAIN OR NUMBNESS? NO, PT STATES LESI DONE 05/11/17, PRE PROCEDURE PAIN WAS 6/10, POST PAIN WAS 2/10. TODAY PAIN IS 6/10 . GASTROENTEROLOGY: ANY NEW CHANGE IN BOWEL CONTROL? NO . GENITOURINARY: ANY NEW CHANGE IN BLADDER CONTROL? NO . IS THERE A CHANCE YOU COULD BE ? NO . HEMATOLOGY/LYMPH: DO YOU TAKE ANY BLOOD THINNERS? (FOR EXAMPLE- COUMADIN, PLAVIX, AGGRENOX, PLATEL, PRADAXA, OR XARELTO) NO . WHEN WAS YOUR LAST DOSE? DATE: TIME: . NEUROLOGY: HAVE YOU FALLEN IN THE PAST 6 MONTHS? YES, PT STATES SHE SLIPPED ON SLIPPERY STEP 03/2017, WAS SEEN AT URGENT CARE WHERE IMAGING WAS DONE TO RIGHT ANKLE AND PT WAS DX'D WITH SPRAINED ANKLE AND TX'D WITH UNIBOOT AND CRUTCHES. PT REPORTS INJURING LEFT WRIST DURING FALL. . ANY NEW EXTREMITY NUMBNESS OR WEAKNESS? NO . CARDIOLOGY: DO YOU HAVE A PACEMAKER OR DEFIBRILLATOR? NO . RESPIRATORY: HAVE YOU BEEN SICK IN THE PAST WEEK? YES, RESOLVING BRONCHITIS TX'D WITH PREDNISONE AND ALBUTEROL . FEVER NO . FLU LIKE SYMPTOMS? NO . COUGH NO . INTEGUMENTARY: DO YOU HAVE ANY RASHES OR OPEN SORES? NO . ALLERGIC/IMMUNO: ARE YOU ALLERGIC TO SHELLFISH OR IV DYE? NO . ANY NEW ALLERGIES? NO . PSYCHIATRIC: DO YOU HAVE THOUGHTS OF HURTING YOURSELF OR SOMEONE ELSE? NO . ARE YOU ABUSED, NEGLECTED, OR IN AN UNSAFE ENVIRONMENT? NO . ENDOCRINOLOGY: ARE YOU DIABETIC? NO . OTHER: DO YOU NEED ANY PRESCRIPTIONS? NO . IF YES, PLEASE LIST: ____ . ANY NEW PROBLEMS WITH YOUR MEDICATIONS? NO . WHEN DID YOU LAST EAT? ____ . WHEN DID YOU LAST DRINK? ____ . WHAT DID YOU LAST DRINK? ____ . NAME OF PERSON DRIVING YOU HOME? ____ . DO YOU HAVE ANY OTHER QUESTIONS OR CONCERNS NO . VITAL SIGNS WT 223.2 LBS, HT 67 IN, BMI 34.95 INDEX, BP 125/62 MM HG, HR 105 /MIN, RR 16 /MIN, TEMP 97.7 F, OXYGEN SAT % 98%, NA INITIALS SC 10:24, REVIEWED BY: EM. EXAMINATION GENERAL EXAMINATION: GENERAL APPEARANCE:ALERT.ORIENTED. PSYCHAFFECT NORMAL. LUNGS:LUNG BANDA ARE CLEAR TO AUSCULTATION BILATERALLY. GOOD MOVEMENT OF AIR. HEART:S1, S2 IN A REGULAR RATE AND RHYTHM. NO SIGNIFICANT MURMURS, RUBS OR GALLOPS NOTED. MUSCULOSKELETAL:MUSCLE STRENGTH TESTING 5/5 BILATERAL LOWER EXTREMITIES. LUMBAR SACRAL SPINEPALPATION: + FOR PAIN OVER L/S SPINE. + FOR PAIN OVER L/S PARSPINALS. ASSESSMENTS INTERVERTEBRAL DISC DISORDER WITH RADICULOPATHY OF LUMBAR REGION - M51.16 (PRIMARY) TREATMENT INTERVERTEBRAL DISC DISORDER WITH RADICULOPATHY OF LUMBAR REGION NOTES: PATIENT WAS ADVISED TO START A WALKING PROGRAM TO STRENGTHEN LUMBAR PARASPINAL MUSCLES AND IMPROVE MOBILITY. THEY WERE ADVISED THAT THIS WILL IMPROVE WEIGHT LOSS AND ALSO DEPRESSION/FIBROMYALGIA SYMPTOMS. ADVISED TO WALK 10 MINUTES EVERY OTHER DAY ON A FLAT SURFACE. EMPHASIZED THE IMPORTANCE OF DOING THIS CONSISTANTLY AND NOT SPORATICALLY TO AVOID INJURY. STRONG ADVISED NOT TO DO MORE THAN 10 MINUTES EVERY OTHER DAY FOR THE FIRST 4 WEEKS.L4/5 LESI. PROCEDURE CODES FA211 ESTABILISHED PATIENT [facility]LY [facility] CHARGE DISPOSITION & COMMUNICATION FOLLOW UP 2WK POST (REASON: L4/5 LESI) ELECTRONICALLY SIGNED BY AL MILLS ON 06/03/2017 AT 02:38 PM EST DISCLAIMER : THIS IS A VISIT SUMMARY EXTRACTED FROM THE [facility] CHART. IT IS NOT A COPY OF THE [facility] PROGRESS NOTE. CLARA
== END ==
LOC: M PAIN 10:00
PROVIDERS: ATTEND Nurse Practitioner Family
DX: G89.29 Other chronic pain (principal); M51.16 Intervertebral disc disorders with radiculopathy, lumbar region; F31.81 Bipolar II disorder; G25.81 Restless legs syndrome; D50.9 Iron deficiency anemia, unspecified; E55.9 Vitamin D deficiency, unspecified; F41.9 Anxiety disorder, unspecified; G47.00 Insomnia, unspecified; F17.210 Nicotine dependence, cigarettes, uncomplicated; Z79.1 Long term (current) use of non-steroidal anti-inflammatories (NSAID); Z79.899 Other long term (current) drug therapy

== ENCOUNTER → 2017-07-06 | Outpatient (CLI) | payer BC, OTHER ==
[~2017-07-06] MED LIST changes: -/LAMO10TA PO; -/METO5TA PO; -/ONDA4TA PO; -/PREG50CA PO; -ABIL10TA PO; -ABIL15TA PO; -ABIL1TAB12 PO; -ABIL20TA5 PO; -ABIL2TAB PO; -ABIL400I IM; -AMBI5TAB PO; -AMBI6.25 PO; -AMIT PO; -ANTI25TA PO; -ASCO25TA PO; -ATIV0.5T3 PO; -AUGM875T28 PO; -B-12100010 PO; -BUSP15TA47 PO; -BUSP1TAB PO; -BUSP5TA PO; -CARA1TAB2 PO; -CLON0.5T PO; -COLA50CA3 PO; -CYCL5TA PO; -CYCL5TAB PO; -CYMB1CAP PO; -CYMB60CA3 PO; -DEPA500T2 PO; -DOCU10ELUD PO; -DRIS50002 PO; -DULO1CAP3 PO; -DULO30CA PO; -EFFE150C; -FERR140T PO; -FERR1TAB8 PO; -FERR324T2 PO; -FLAG500T PO; -FLUO20CA8 PO; -FLUR15CA14 PO; -GABA-283 PO; -GABA100C PO; -HYDR-3363 PO; -HYDR-3713 PO; -HYDR-3716 PO; -HYDR-3719 PO; -HYDR50TA70 PO; -HYDRO50TAB PO; -IBUP-1114 PO; -IRON65TA PO; +ISOVUE-M 300 61% 15ML VIAL (Q9967) As Ordered; -KLON1TAB PO; -LAMI25TA PO; -LAMICTAL PO; -LAMO10TA PO; +LIDOCAINE 1% SDV INJ 30 ML VIAL As Ordered; -LITH1TAB PO; -LITH1TAB4 PO; -LYRI300C PO; -LYRI75CA PO; -MELA0.02 PO; -MIRA0.5T PO; -MORP15TA2 PO; -MORP1TAB19 PO; -MULTTAB4 PO; -NEUR300C PO; -NEUR600T; -NEURONTIN PO; -NICO21DI26 EXT; -NORT10CA2 PO; -OLAN10TA2 PO; -OLAN15TA PO; -OLANZAPINE PO; -OPAN5TAB3 PO; -OXYC5CAP28 PO; -OXYC5TAB2 PO; -PAXI10TA2 PO; -PAXI20TA29 PO; -PAXI20TA3 PO; -PERC5TAB PO; -PERCOCET PO; -PRED20TA PO; -PRIL40CA PO; -PRIM250T8 PO; -PRIM50TA6 PO; -ROPI1TAB PO; -ROZE8TAB PO; -TIZA1POW XX; -TIZA2CAP3 PO; -TRAZ-136 PO; -TRAZ150T PO; -TRAZ50TA11 PO; -TRAZ50TA2 PO; -VALI10TA PO; -VALI5TAB; -VALI5TAB PO; -VENL25TA2 PO; -VENL75CA PO; -VIST50CA PO; -VITA100L SC; -VITA1CAP40 PO; -VITA500T3 PO; -VITA500T53 PO; -VITMTA PO; -WELL100T PO; -WELLTAB PO; -XANA0.5T PO; -XANA1TAB2 PO; -XANA2TAB2 PO; -ZOFR4TAB3 PO; -ZOLO100T PO; -[UNRECOGNIZED DRUG - CODE] PO; +diazePAM 5 MG TAB As Ordered; +methylPREDNISolone SUSP 40 MG/ML (DEPO-medrol) VIAL (J1030) As Ordered; +oxyCODONE 5MG TAB As Ordered
== END ==
LOC: M PAIN 10:15
DX: G89.29 Other chronic pain (principal); M51.16 Intervertebral disc disorders with radiculopathy, lumbar region; F41.9 Anxiety disorder, unspecified; F32.9 Major depressive disorder, single episode, unspecified; G47.00 Insomnia, unspecified; G62.9 Polyneuropathy, unspecified; F17.210 Nicotine dependence, cigarettes, uncomplicated; Z79.899 Other long term (current) drug therapy
CPT/HCPCS: J1030

== ENCOUNTER 2017-07-18 13:38 | Emergency (ER) | payer BC, OTHER ==
[2017-07-18] MEDS: CLINDAMYCIN 150 MG CAP PO (16:54)
[2017-07-18] MEDS: NORCO 5/325MG TABLET (BULK FOR ED) PO (16:55)
[2017-07-18] MEDS: LIDOCAINE VISCOUS 2% SOLN 15ML UDC MT (16:55)
== END 2017-07-18 17:04 | disposition home or self-care (01) ==
LOC: M ED 13:38
DX: K04.7 Periapical abscess without sinus (principal); F41.9 Anxiety disorder, unspecified; F31.9 Bipolar disorder, unspecified; Z98.84 Bariatric surgery status; Z79.899 Other long term (current) drug therapy; Z88.8 Allergy status to other drugs, medicaments and biological substances; F17.210 Nicotine dependence, cigarettes, uncomplicated
CPT/HCPCS: 99283

== ENCOUNTER 2017-07-29 09:21 | Day surgery (SDC) | payer BC, OTHER ==
[2017-07-29] MEDS: FLUoxetine 20 MG CAP PO (09:00)
[~2017-07-29 09:21] MED LIST changes: -ISOVUE-M 300 61% 15ML VIAL (Q9967) As Ordered; -LIDOCAINE 1% SDV INJ 30 ML VIAL As Ordered; +LIDOCAINE 2% INJ 100 MG/5 ML SDV (FOR ANES.) As Ordered; +MIDAZOLAM INJ 2 MG/2 ML VIAL (J2250) As Ordered; +PROPOFOL 200 MG/20 ML VIAL As Ordered; +ROCURONIUM BROMIDE 50 MG/5 ML VIAL As Ordered; +dexameTHASONE 4 MG/ML 1ML VIAL (J1100) As Ordered; -diazePAM 5 MG TAB As Ordered; +fentaNYL 250 MCG/5 ML INJECTION (J3010) As Ordered; -methylPREDNISolone SUSP 40 MG/ML (DEPO-medrol) VIAL (J1030) As Ordered; -oxyCODONE 5MG TAB As Ordered
[2017-07-29] MEDS ORDERED: LIDOCAINE 1% MDV 20ML VIAL SQ (09:30)
[2017-07-29] MEDS ORDERED: ROCURONIUM BROMIDE 50 MG/5 ML VIAL As Ordered (10:07)
[2017-07-29 10:26] LABS: HEMATOCRIT 42.9 % (36.0-47.0); HEMOGLOBIN 13.7 g/dl (12.0-16.0); MEAN CORPUSCULAR HEMOGLOBIN 27.1 pg (27.0-33.0); MEAN CORPUSCULAR HGB CONC 31.9 g/dl (32.0-36.5); MEAN CORPUSCULAR VOLUME 84.8 fl (80.0-96.0); PLATELET COUNT, AUTOMATED 333 10^3/uL (150-450); RED BLOOD COUNT 5.06 10^6/uL (4.00-5.40); RED CELL DISTRIBUTION WIDTH 23.4 % (11.5-14.5); WHITE BLOOD COUNT 7.9 10^3/uL (4.0-10.0)
[2017-07-29] MEDS: LR 1,000 ML IV ×3 (10:45→17:57)
[2017-07-29] MEDS ORDERED: SEVOFLURANE INHAL SOLN 250 ML BTL As Ordered (12:14)
[2017-07-29] MEDS ORDERED: HYDROmorphone HCL 2 MG/ML 1ML VIAL (J1170) As Ordered (13:40)
[2017-07-29] MEDS ORDERED: NEOSTIGMINE 10 MG/10 ML VIAL (J2710) As Ordered (14:05)
[2017-07-29] MEDS ORDERED: GLYCOPYRROLATE INJ 0.2 MG/ML 2 ML VIAL As Ordered (14:05)
[2017-07-29] MEDS ORDERED: MORPHINE 1MG/ML IN 0.9% NACL 100ML IV BAG As Ordered (15:21)
[2017-07-29] MEDS: MORPHINE 1MG/ML IN 0.9% NACL 100ML IV BAG IV (15:40)
[2017-07-29] MEDS ORDERED: NALOXONE INJ 0.4 MG/1 ML VIAL (J2310) IV (16:15)
[2017-07-29] MEDS ORDERED: ONDANSETRON 4MG/2ML VIAL (J2405) IV (16:15)
[2017-07-29] MEDS ORDERED: EPIDURAL/PCA KEYS XX (16:15)
[2017-07-29] MEDS ORDERED: MEPERIDINE INJ 25 MG/ML VIAL (J2175) IV (16:15)
[2017-07-29] MEDS ORDERED: diphenhydrAMINE INJ 50MG/ML VIAL (J1200) IV (16:15)
[2017-07-29] MEDS ORDERED: PERCOCET 5MG/325MG TAB PO (16:15)
[2017-07-29] MEDS ORDERED: fentaNYL 100 MCG/2 ML INJECTION (J3010) IV (16:15)
[2017-07-29] MEDS ORDERED: NALBUPHINE HCL 10 MG/ML AMP (J2300) IV (16:15)
[2017-07-29] MEDS ORDERED: IBUPROFEN 600 MG TAB PO (18:45)
[2017-07-29] MEDS: clonazePAM 0.5 MG TAB PO (21:37)
[2017-07-29] MEDS: lamoTRIgine 100MG TAB PO (21:37)
[2017-07-29] MEDS: lamoTRIgine 25 MG TAB PO (21:37)
[2017-07-30] MEDS: LR 1,000 ML IV (00:15)
[2017-07-30] MEDS ORDERED: NORCO, ANEXSIA 5/325MG TABLET (HYDROcodone/ACETAMINOPHEN) PO (06:00)
[2017-07-30 07:03] LABS: HEMATOCRIT 37.9 % (36.0-47.0); HEMOGLOBIN 11.9 g/dl (12.0-16.0); MEAN CORPUSCULAR HEMOGLOBIN 26.8 pg (27.0-33.0); MEAN CORPUSCULAR HGB CONC 31.4 g/dl (32.0-36.5); MEAN CORPUSCULAR VOLUME 85.4 fl (80.0-96.0); PLATELET COUNT, AUTOMATED 319 10^3/uL (150-450); RED BLOOD COUNT 4.44 10^6/uL (4.00-5.40); RED CELL DISTRIBUTION WIDTH 23.2 % (11.5-14.5); WHITE BLOOD COUNT 12.6 10^3/uL (4.0-10.0)
[2017-07-30] MEDS: lamoTRIgine 100MG TAB PO (08:36)
[2017-07-30] MEDS: FLUoxetine 20 MG CAP PO (08:36)
[2017-07-30] MEDS: lamoTRIgine 25 MG TAB PO (08:37)
== END 2017-07-30 10:40 | disposition home or self-care (01) ==
LOC: M SDC 09:21 → M PED 17:00
DX: N94.10 Unspecified dyspareunia (principal); N92.4 Excessive bleeding in the premenopausal period; K66.8 Other specified disorders of peritoneum; G47.33 Obstructive sleep apnea (adult) (pediatric); F32.9 Major depressive disorder, single episode, unspecified; E04.1 Nontoxic single thyroid nodule; E66.9 Obesity, unspecified; T88.59XD Other complications of anesthesia, subsequent encounter; D50.9 Iron deficiency anemia, unspecified; M51.9 Unspecified thoracic, thoracolumbar and lumbosacral intervertebral disc disorder; F41.9 Anxiety disorder, unspecified; F31.9 Bipolar disorder, unspecified; G43.909 Migraine, unspecified, not intractable, without status migrainosus; G62.9 Polyneuropathy, unspecified; Z88.6 Allergy status to analgesic agent; Z88.8 Allergy status to other drugs, medicaments and biological substances; Z79.899 Other long term (current) drug therapy; Z98.84 Bariatric surgery status; Z98.51 Tubal ligation status; Z72.0 Tobacco use; Z68.34 Body mass index [BMI] 34.0-34.9, adult
CPT/HCPCS: 58571

== ENCOUNTER 2017-12-30 00:15 | Emergency (ER) | payer BC, OTHER ==
[2017-12-30] MEDS: AUGMENTIN 875 MG TAB PO (02:08)
== END 2017-12-30 02:09 | disposition home or self-care (01) ==
LOC: M ED 00:15
DX: H66.93 Otitis media, unspecified, bilateral (principal); J20.9 Acute bronchitis, unspecified; F32.9 Major depressive disorder, single episode, unspecified; F41.9 Anxiety disorder, unspecified; G62.9 Polyneuropathy, unspecified; Z98.84 Bariatric surgery status; Z72.0 Tobacco use; Z79.899 Other long term (current) drug therapy; Z88.6 Allergy status to analgesic agent; Z88.8 Allergy status to other drugs, medicaments and biological substances
CPT/HCPCS: 71046

== ENCOUNTER → 2018-01-21 | Outpatient (CLI) | payer BC, OTHER | LOC: M WUC 13:30 | DX: J18.9 Pneumonia, unspecified organism (principal) | CPT/HCPCS: 71046 ==

== ENCOUNTER → 2018-02-18 | Outpatient (CLI) | payer BC, OTHER ==
[2018-02-18 13:50] LABS: ANION GAP 9 MEQ/L (8-16); BLOOD UREA NITROGEN 10 MG/DL (7-18); CALCIUM LEVEL 8.6 MG/DL (8.5-10.1); CARBON DIOXIDE LEVEL 26 MEQ/L (21-32); CHLORIDE LEVEL 108 MEQ/L (98-107); CREATININE FOR GFR 0.79 MG/DL (0.55-1.30); GLOMERULAR FILTRATION RATE > 60.0 (>58); GLUCOSE, FASTING 71 MG/DL (70-100); MAGNESIUM LEVEL 2.3 MG/DL (1.8-2.4); PHOSPHORUS LEVEL 3.9 MG/DL (2.5-4.9); POTASSIUM SERUM 4.4 MEQ/L (3.5-5.1); SODIUM LEVEL 143 MEQ/L (136-145)
== END ==
LOC: M WUC 10:43
DX: K90.9 Intestinal malabsorption, unspecified (principal); E11.9 Type 2 diabetes mellitus without complications; I12.0 Hypertensive chronic kidney disease with stage 5 chronic kidney disease or end stage renal disease; N18.6 End stage renal disease
CPT/HCPCS: 83735

== ENCOUNTER 2018-03-23 12:47 | Emergency (ER) | payer BC, OTHER ==
[2018-03-23 13:44] LABS: HEMATOCRIT 46.5 % (36.0-47.0); HEMOGLOBIN 15.5 g/dl (12.0-15.5); MEAN CORPUSCULAR HEMOGLOBIN 29.2 pg (27.0-33.0); MEAN CORPUSCULAR HGB CONC 33.3 g/dl (32.0-36.5); MEAN CORPUSCULAR VOLUME 87.6 fl (80.0-96.0); PLATELET COUNT, AUTOMATED 345 10^3/uL (150-450); RED BLOOD COUNT 5.31 10^6/uL (4.00-5.40); RED CELL DISTRIBUTION WIDTH 13.9 % (11.5-14.5); WHITE BLOOD COUNT 10.2 10^3/uL (4.0-10.0)
[2018-03-23 13:54] LABS: CONTROL LINE HCG INT CTR LINE PRESENT; HCG, SERUM QUALITATIVE NEGATIVE (NEGATIVE)
[2018-03-23 14:06] LABS: AMPHETAMINES LEVEL URINE NEGATIVE (NEGATIVE); BARBITURATES URINE NEGATIVE (NEGATIVE); BENZODIAZEPINES URINE NEGATIVE (NEGATIVE); CANNABINOIDS URINE NEGATIVE (NEGATIVE); COCAINE METABOLITE URINE NEGATIVE (NEGATIVE); METHADONE URINE NEGATIVE (NEGATIVE); OPIATES URINE NEGATIVE (NEGATIVE); PHENCYCLIDINE URINE NEGATIVE (NEGATIVE)
[2018-03-23 14:30] LABS: ALBUMIN 4.1 GM/DL (3.2-5.2); ALBUMIN/GLOBULIN RATIO 1.17 (1.00-1.93); ALKALINE PHOSPHATASE 100 U/L (45-117); ALT/SGPT 27 U/L (12-78); ANION GAP 11 MEQ/L (8-16); AST/SGOT 13 U/L (7-37); BILIRUBIN,DIRECT 0.1 MG/DL (0.0-0.2); BILIRUBIN,TOTAL 0.5 MG/DL (0.2-1.0); BLOOD UREA NITROGEN 7 MG/DL (7-18); CALCIUM LEVEL 9.5 MG/DL (8.5-10.1); CARBON DIOXIDE LEVEL 23 MEQ/L (21-32); CHLORIDE LEVEL 109 MEQ/L (98-107); CREATININE FOR GFR 0.82 MG/DL (0.55-1.30); ETHYL ALCOHOL (ETHANOL) 0.004 % (0.000-0.010); GLOMERULAR FILTRATION RATE > 60.0 (>58); GLUCOSE, FASTING 92 MG/DL (70-100); SALICYLATE LEVEL 4.4 MG/DL (5.0-30.0); SODIUM LEVEL 143 MEQ/L (136-145); THYROID STIMULATING HORMONE 0.061 uIU/ML (0.358-3.740); TOTAL PROTEIN 7.6 GM/DL (6.4-8.2)
[2018-03-23 14:35] LABS: ACETAMINOPHEN LEVEL < 2.0 UG/ML (10.0-30.0)
== END 2018-03-23 15:36 | disposition home or self-care (01) ==
LOC: M ED 12:47
DX: F33.9 Major depressive disorder, recurrent, unspecified (principal); Z88.8 Allergy status to other drugs, medicaments and biological substances; Z79.890 Hormone replacement therapy; Z79.899 Other long term (current) drug therapy
CPT/HCPCS: G0480

== ENCOUNTER 2018-04-01 18:50 | Emergency (ER) | payer BC, OTHER | END 2018-04-01 22:49 | disposition left against medical advice (07) | LOC: M ED 18:50 | DX: G89.18 Other acute postprocedural pain (principal); Z53.21 Procedure and treatment not carried out due to patient leaving prior to being seen by health care provider ==

== ENCOUNTER 2018-06-27 00:14 | Emergency (ER) | payer BC, OTHER ==
[2018-06-27] MEDS: NORCO, ANEXSIA 5/325MG TABLET (HYDROcodone/ACETAMINOPHEN) PO (00:45)
[2018-06-27] MEDS: predniSONE 20 MG TAB PO (00:59)
== END 2018-06-27 01:30 | disposition home or self-care (01) ==
LOC: M ED 00:14
DX: S39.012A Strain of muscle, fascia and tendon of lower back, initial encounter (principal); X50.9XXA Other and unspecified overexertion or strenuous movements or postures, initial encounter; Y93.H1 Activity, digging, shoveling and raking
CPT/HCPCS: 72131

== ENCOUNTER → 2018-06-30 | Outpatient (REF) | payer OTHER ==
[2018-06-30 19:47] LABS: APPEARANCE, URINE CLEAR (CLEAR); BACTERIA, URINE AUTO 1+ (NEGATIVE); BILIRUBIN, URINE AUTO NEGATIVE (NEGATIVE); BLOOD, URINE BLOOD NEGATIVE (NEGATIVE); COLOR, URINE YELLOW (YELLOW); GLUCOSE, URINE (UA) AUTO 3+ mg/dL (NEGATIVE); KETONE, URINE AUTO NEGATIVE (NEGATIVE); LEUKOCYTE ESTERASE, URINE AUTO NEGATIVE (NEGATIVE); MUCUS, URINE SMALL (NEGATIVE); NITRITE, URINE AUTO NEGATIVE (NEGATIVE); PROTEIN, URINE AUTO NEGATIVE (NEGATIVE); RBC, URINE AUTO 0 /HPF (0-3); SPECIFIC GRAVITY URINE AUTO 1.023 (1.002-1.035); SQUAMOUS EPITHELIAL CELL UR AU 1 /HPF (0-6); WBC, URINE AUTO 0 /HPF (0-3)
== END ==
LOC: M SFHCCAPE 16:56
DX: R81 Glycosuria (principal)
CPT/HCPCS: 81001

== ENCOUNTER → 2018-07-01 | Outpatient (CLI) | payer OTHER, BC ==
[2018-07-01 13:40] LABS: HEMATOCRIT 40.2 % (36.0-47.0); HEMOGLOBIN 12.7 g/dl (12.0-15.5); MEAN CORPUSCULAR HEMOGLOBIN 29.5 pg (27.0-33.0); MEAN CORPUSCULAR HGB CONC 31.6 g/dl (32.0-36.5); MEAN CORPUSCULAR VOLUME 93.3 fl (80.0-96.0); PLATELET COUNT, AUTOMATED 380 10^3/uL (150-450); RED BLOOD COUNT 4.31 10^6/uL (4.00-5.40); RED CELL DISTRIBUTION WIDTH 13.2 % (11.5-14.5)
[2018-07-01 13:44] LABS: ADD MANUAL DIFFER YES; DIFF SLIDE NUMBER 141; POSITIVE DIFF POS FLAG; WHITE BLOOD COUNT 12.3 10^3/uL (4.0-10.0)
[2018-07-01 14:18] LABS: ALBUMIN 3.2 GM/DL (3.2-5.2); ALBUMIN/GLOBULIN RATIO 1.03 (1.00-1.93); ALKALINE PHOSPHATASE 89 U/L (45-117); ALT/SGPT 23 U/L (12-78); ANION GAP 6 MEQ/L (8-16); AST/SGOT 11 U/L (7-37); BILIRUBIN,TOTAL 0.3 MG/DL (0.2-1.0); BLOOD UREA NITROGEN 14 MG/DL (7-18); CARBON DIOXIDE LEVEL 30 MEQ/L (21-32); CHLORIDE LEVEL 108 MEQ/L (98-107); CHOLESTEROL LEVEL 174 MG/DL (<200); CHOLESTEROL RISK RATIO 2.558 (<5); CREATININE FOR GFR 0.82 MG/DL (0.55-1.30); GLOMERULAR FILTRATION RATE > 60.0 (>58); GLUCOSE, FASTING 99 MG/DL (70-100); HDL CHOLESTEROL 68 MG/DL (>40); LDL CHOLESTEROL 64 MG/DL (<100); NON-HDL-C 106 MG/DL; SODIUM LEVEL 144 MEQ/L (136-145); TOTAL PROTEIN 6.3 GM/DL (6.4-8.2); TRIGLYCERIDES LEVEL 210 MG/DL (<150)
[2018-07-01 14:28] LABS: EOSINOPHILS 3 % (0-5); LYMPHOCYTES 39 % (16-52); NEUTROPHILS 58 % (35-75)
[2018-07-01 14:29] LABS: PLATELET ESTIMATE NORMAL (NORMAL)
[2018-07-01 15:39] LABS: ESTIMATED AVERAGE GLUCOSE 126 MG/DL (60-110)
== END ==
LOC: M WUC 08:54
DX: R81 Glycosuria (principal)
CPT/HCPCS: 80053

== ENCOUNTER → 2018-09-07 | Outpatient (REF) | payer OTHER ==
[~2018-09-07] MED LIST changes: +/LAMO10TA PO; +/METO5TA PO; +/ONDA4TA PO; +/PREG50CA PO; +ABIL10TA PO; +ABIL15TA PO; +ABIL1TAB12 PO; +ABIL20TA5 PO; +ABIL2TAB PO; +ABIL400I IM; +AMBI5TAB PO; +AMBI6.25 PO; +AMIT PO; +ANTI25TA PO; +ASCO25TA PO; +ATIV0.5T3 PO; +AUGM500T34 PO; +AUGM875T28 PO; +B-12100010 PO; +BUSP15TA47 PO; +BUSP1TAB PO; +BUSP5TA PO; +CARA1TAB2 PO; +CLEO300C2 PO; +CLON0.5T8 PO; +COLA50CA3 PO; +CYCL5TA PO; +CYCL5TAB PO; +CYMB1CAP PO; +CYMB60CA3 PO; +DEPA500T2 PO; +DOCU10ELUD PO; +DRIS50003 PO; +DULO1CAP3 PO; +DULO30CA PO; +EFFE150C; +ESTR625TA PO; +FERR140T2 PO; +FERR1TAB8 PO; +FERR324T2 PO; +FLAG500T PO; +FLUO20CA19; +FLUO20CA8 PO; +FLUR15CA14 PO; +GABA-845 PO; +GABA100C PO; +HYDR-3363 PO; +HYDR-3713 PO; +HYDR-3716 PO; +HYDR-3719 PO; +HYDR50TA70 PO; +HYDRO50TAB PO; +IBUP-1114 PO; +IRON50TA PO; +IRON65TA PO; +KLON1TAB PO; +LAMI25TA PO; +LAMICTAL PO; +LAMO10TA PO; -LIDOCAINE 2% INJ 100 MG/5 ML SDV (FOR ANES.) As Ordered; +LITH1TAB PO; +LITH1TAB4 PO; +LYRI300C PO; +LYRI75CA PO; +MELA0.02 PO; -MIDAZOLAM INJ 2 MG/2 ML VIAL (J2250) As Ordered; +MIRA0.5T PO; +MORP15TA2 PO; +MORP1TAB19 PO; +MOTR200T44 PO; +MULTTAB4 PO; +NEUR300C PO; +NEUR600T; +NEURONTIN PO; +NICO21DI26 EXT; +NORCOTAB PO; +NORT10CA2 PO; +OLAN10TA2 PO; +OLAN15TA PO; +OLANZAPINE PO; +OPAN5TAB3 PO; +OXYC5CAP28 PO; +OXYC5TAB2 PO; +OXYCOD/APAP; +PAXI10TA2 PO; +PAXI20TA29 PO; +PAXI20TA3 PO; +PERC5TAB PO; +PERCOCET PO; +PRED20TA PO; +PRIL40CA PO; +PRIM250T8 PO; +PRIM50TA6 PO; -PROPOFOL 200 MG/20 ML VIAL As Ordered; -ROCURONIUM BROMIDE 50 MG/5 ML VIAL As Ordered; +ROPI1TAB PO; +ROZE8TAB PO; +TIZA1POW XX; +TIZA2CAP PO; +TRAZ-160 PO; +TRAZ-163 PO; +TRAZ150T PO; +TRAZ1TAB14 PO; +TRAZ50TA2 PO; +VALI10TA PO; +VALI5TAB; +VALI5TAB PO; +VENL25TA2 PO; +VENL75CA PO; +VIST50CA PO; +VITA100054 PO; +VITA100L SC; +VITA50005 PO; +VITA500T3 PO; +VITA500T53 PO; +VITMTA PO; +WELL100T PO; +WELLTAB PO; +XANA0.5T PO; +XANA1TAB2 PO; +XANA2TAB2 PO; +ZOFR4TAB14 PO; +ZOLO100T PO; +[UNRECOGNIZED DRUG - CODE] PO; -dexameTHASONE 4 MG/ML 1ML VIAL (J1100) As Ordered; -fentaNYL 250 MCG/5 ML INJECTION (J3010) As Ordered
[2018-09-07 17:53] LABS: BASO % 0.5 % (0.0-1.0); EOS % 0.3 % (0.0-3.0); HEMATOCRIT 46.6 % (36.0-47.0); HEMOGLOBIN 15.2 g/dl (12.0-15.5); LYMPH # 1.5 10^3/uL (1.5-4.5); LYMPH % 23.2 % (24.0-44.0); MEAN CORPUSCULAR HEMOGLOBIN 28.9 pg (27.0-33.0); MEAN CORPUSCULAR HGB CONC 32.6 g/dl (32.0-36.5); MEAN CORPUSCULAR VOLUME 88.6 fl (80.0-96.0); MONO # 0.5 10^3/uL (0.0-0.8); MONO % 7.4 % (0.0-5.0); NEUTROPHILS # 4.3 10^3/uL (1.8-7.7); NEUTROPHILS % 68.4 % (36.0-66.0); PLATELET COUNT, AUTOMATED 349 10^3/uL (150-450); RED BLOOD COUNT 5.26 10^6/uL (4.00-5.40); WHITE BLOOD COUNT 6.3 10^3/uL (4.0-10.0)
[2018-09-07 18:03] LABS: ALBUMIN 3.8 GM/DL (3.2-5.2); ALT/SGPT 32 U/L (12-78); BILIRUBIN,TOTAL 0.6 MG/DL (0.2-1.0); BLOOD UREA NITROGEN 14 MG/DL (7-18); CALCIUM LEVEL 8.9 MG/DL (8.5-10.1); CARBON DIOXIDE LEVEL 26 MEQ/L (21-32); CHLORIDE LEVEL 108 MEQ/L (98-107); CREATININE FOR GFR 0.81 MG/DL (0.55-1.30); FREE T4 1.08 NG/DL (0.76-1.46); GLOMERULAR FILTRATION RATE > 60.0 (>58); GLUCOSE, FASTING 78 MG/DL (70-100); POTASSIUM SERUM 4.5 MEQ/L (3.5-5.1); SODIUM LEVEL 141 MEQ/L (136-145); THYROID STIMULATING HORMONE 0.173 uIU/ML (0.358-3.740); TOTAL 25(OH) VITAMIN D 20.2 NG/ML (30.0-100.0); TOTAL PROTEIN 7.3 GM/DL (6.4-8.2); VITAMIN B12 LEVEL 337 PG/ML
[2018-09-07 18:04] LABS: FOLATE 18.8 NG/ML
== END ==
LOC: M SFHCCAPE 08:24
PROVIDERS: ATTEND Physician Assistant
DX: E55.9 Vitamin D deficiency, unspecified (principal); R42 Dizziness and giddiness

== ENCOUNTER → 2018-09-23 | Outpatient (CLI) | payer BC, OTHER ==
--- NOTE | 2018-09-26 08:53 | REP ---
MR BRAIN WITHOUT CONTRAST: HISTORY: Chronic migraine. COMPARISON: 01/30/2013. Several punctate areas of increased signal intensity on T2-weighted images are present in the caryn. This represents small vessel ischemic disease. There is no intraparenchymal hemorrhage, infarct, mass, or midline shift. The ventricular system is normal in appearance. There is no extracerebral collection. A lorri cisterna magna is present. The sinuses are clear. IMPRESSION: Minimal small vessel ischemic disease. Electronically Signed by Kg Mckenna MD 09/26/2018 08:57 A
== END ==
LOC: M RAD 17:39
PROVIDERS: ATTEND Physician Assistant
DX: I67.82 Cerebral ischemia (principal); G43.709 Chronic migraine without aura, not intractable, without status migrainosus

== ENCOUNTER 2018-11-29 13:28 | Emergency (ER) | payer BC, OTHER ==
[~2018-11-29] VITALS: Ht 170.2 cm; Wt 100.0 kg
[~2018-11-29 13:28] MED LIST changes: -/LAMO10TA PO; -/METO5TA PO; -/ONDA4TA PO; -/PREG50CA PO; -AMIT PO; +AMIT1TAB PO; -ASCO25TA PO; -CYCL5TA PO; +CYCL5TAB5 PO; -DOCU10ELUD PO; +DOCU5LIQ PO; -DULO30CA PO; +DULO30CA9 PO; -FLUO20CA19; +FLUO20CA19 PO; +HYDR-3715 PO; +HYDR-4274 PO; -HYDRO50TAB PO; +LAMI1TAB7 PO; +LAMO100T80 PO; -LAMO10TA PO; +LYRI50CA PO; +METO1TAB88 PO; -NORCOTAB PO; +ONDA-1 PO; +OXYC1TAB23 PO; -PERCOCET PO; +VITA1TAB23 PO; +VITA500T17 PO; -VITA500T53 PO
[2018-11-29 16:41] VITALS: BP 140/75
== END 2018-11-29 17:12 | disposition home or self-care (01) ==
LOC: M ED 13:28
DX: F33.9 Major depressive disorder, recurrent, unspecified (principal); Z98.84 Bariatric surgery status; Z79.899 Other long term (current) drug therapy; Z88.8 Allergy status to other drugs, medicaments and biological substances; F17.210 Nicotine dependence, cigarettes, uncomplicated

== ENCOUNTER 2019-03-03 16:02 | Emergency (ER) | payer BC, OTHER ==
[~2019-03-03] VITALS: Ht 170.2 cm; Wt 100.9 kg
[~2019-03-03 16:02] MED LIST changes: -DULO1CAP3 PO; +DULO1CAP6 PO; -TRAZ-160 PO; +TRAZ-252 PO
[2019-03-03] MEDS ORDERED: HYDR-4571 PO (16:09)
[2019-03-03] MEDS ORDERED: AMOX875T2 PO (16:09)
[2019-03-03] MEDS ORDERED: ARTICAINE HCL/EPINEPHRINE 4%-1:200,000 1.7ML INJ (SEPTOCAINE) SM ONE (17:45)
[2019-03-03] MEDS ORDERED: KETO10TAB PO (18:02)
[2019-03-03] MEDS ORDERED: AUGM875T28 PO (18:02)
[2019-03-03] MEDS ORDERED: LIDO1SOL8 PO (18:02)
[2019-03-03] MEDS ORDERED: PERI0.126 PO (18:03)
[2019-03-03 18:09] VITALS: BP 118/76
== END 2019-03-03 18:08 | disposition home or self-care (01) ==
LOC: M ED 16:02
DX: K08.89 Other specified disorders of teeth and supporting structures (principal); Z98.818 Other dental procedure status; G62.9 Polyneuropathy, unspecified; F31.9 Bipolar disorder, unspecified; F41.9 Anxiety disorder, unspecified; Z98.84 Bariatric surgery status; Z79.899 Other long term (current) drug therapy; Z88.8 Allergy status to other drugs, medicaments and biological substances

== ENCOUNTER 2019-03-06 02:33 | Emergency (ER) | payer BC, OTHER ==
[~2019-03-06] VITALS: Ht 170.2 cm; Wt 100.0 kg
[~2019-03-06 02:33] MED LIST changes: +AMOX875T2 PO; +CLON0.5T2 PO; -CLON0.5T8 PO; +FLUO20CA20 PO; -FLUO20CA8 PO; +HYDR-4571 PO; +KETO10TAB PO; +LIDO1SOL8 PO; +PERI0.126 PO; -TRAZ-163 PO; +TRAZ-257 PO
[2019-03-06] MEDS ORDERED: METOCLOPRAMIDE INJ 10MG/2ML VIAL (J2765) IV ONE (06:15)
[2019-03-06] MEDS ORDERED: NS 1,000 ML IV ONE (06:15)
[2019-03-06] MEDS ORDERED: PERCOCET 5MG/325MG TAB PO ONE ×2 (06:15→08:00)
[2019-03-06] MEDS ORDERED: SUMAtriptan SUCCINATE 6 MG/0.5 ML VIAL SC ONE (06:15)
[2019-03-06] MEDS ORDERED: KETOROLAC 30 MG/ML VIAL (J1885) IV ONE (06:15)
[2019-03-06] MEDS ORDERED: PERC5TAB12 PO (09:20)
[2019-03-06 09:27] VITALS: BP 131/60
== END 2019-03-06 09:40 | disposition home or self-care (01) ==
LOC: M ED 02:33
DX: R51 Headache (principal); R68.84 Jaw pain; R11.2 Nausea with vomiting, unspecified; G60.3 Idiopathic progressive neuropathy; F31.9 Bipolar disorder, unspecified; F17.210 Nicotine dependence, cigarettes, uncomplicated; Z79.2 Long term (current) use of antibiotics; Z79.899 Other long term (current) drug therapy; Z98.84 Bariatric surgery status; Z90.710 Acquired absence of both cervix and uterus; Z88.8 Allergy status to other drugs, medicaments and biological substances
CPT/HCPCS: 96361; 96374; 96375; 99283; J1885; J2765

== ENCOUNTER 2019-05-25 15:47 | Emergency (ER) | payer BC, OTHER ==
[~2019-05-25] VITALS: Ht 170.2 cm; Wt 99.7 kg
[~2019-05-25 15:47] MED LIST changes: -CLON0.5T2 PO; +CLON0.5T8 PO; -FLUO20CA20 PO; +FLUO20CA8 PO; +PERC5TAB12 PO; +TRAZ-163 PO; -TRAZ-257 PO
[2019-05-25] MEDS ORDERED: CELE1CAP7 (16:12)
[2019-05-25] MEDS ORDERED: TIZA4TAB4 (16:12)
--- NOTE | 2019-05-25 16:26 | REP ---
Portable chest, 04:02 p.m., single AP view with the patient sitting: The lung sandoval are clear. The cardiac size is normal. The deandra, mediastinum, and skeletal structures are unremarkable. Impression: Negative portable chest. There is no interval change. Electronically Signed by Lazaro Lewis MD 05/25/2019 04:17 P
[2019-05-25 16:38] LABS: BASO # 0.1 10^3/uL (0.0-0.2); BASO % 0.7 % (0.0-1.0); EOS # 0.1 10^3/uL (0.0-0.5); EOS % 0.7 % (0.0-3.0); HEMATOCRIT 41.4 % (36.0-47.0); LYMPH # 2.3 10^3/uL (1.5-5.0); LYMPH % 34.2 % (24.0-44.0); MEAN CORPUSCULAR HEMOGLOBIN 28.9 pg (27.0-33.0); MEAN CORPUSCULAR HGB CONC 31.4 g/dl (32.0-36.5); MONO # 0.5 10^3/uL (0.0-0.8); MONO % 8.1 % (0.0-5.0); NEUTROPHILS # 3.8 10^3/uL (1.5-8.5); NEUTROPHILS % 56.2 % (36.0-66.0); PLATELET COUNT, AUTOMATED 339 10^3/uL (150-450); WHITE BLOOD COUNT 6.7 10^3/uL (4.0-10.0)
[2019-05-25] MEDS ORDERED: GI COCKTAIL 50ML BTL(HYOSCYAMINE/MAALOX/LIDOCAINE VISCOUS)(1:3:1) PO ONE (17:00)
[2019-05-25 17:19] LABS: ALBUMIN 3.4 GM/DL (3.2-5.2); ALT/SGPT 20 U/L (12-78); BILIRUBIN,DIRECT < 0.1 MG/DL (0.0-0.2); BILIRUBIN,TOTAL 0.3 MG/DL (0.2-1.0); BLOOD UREA NITROGEN 16 MG/DL (7-18); CALCIUM LEVEL 8.4 MG/DL (8.5-10.1); CARBON DIOXIDE LEVEL 28 MEQ/L (21-32); CHLORIDE LEVEL 110 MEQ/L (98-107); CK-MB VALUE MASS 1.1 NG/ML (<3.6); CPK CREATINE PHOSPHOKINASE 65 U/L (26-192); CREATININE FOR GFR 0.71 MG/DL (0.55-1.30); GLOMERULAR FILTRATION RATE > 60.0 (>58); GLUCOSE, FASTING 83 MG/DL (70-100); LIPASE 81 U/L (73-393); MB/CK RELATIVE INDEX 1.69 (< OR =4); POTASSIUM SERUM 3.9 MEQ/L (3.5-5.1); SODIUM LEVEL 141 MEQ/L (136-145); TOTAL PROTEIN 6.8 GM/DL (6.4-8.2); TROPONIN I < 0.02 NG/ML (< 0.10)
[2019-05-25 17:31] VITALS: BP 104/62
--- NOTE | 2019-05-25 21:03 | ECGEPIP ---
[facility] - ED Test Date: 2019-05-25 Pat Name: ALEXANDRA ORTIZ Department: Room: - Gender: Female Skip Miner: DAMI : 1970 Requested By: KISHOR Ibarra Order Number: [id number] Reading MD: Kishor Layton Measurements Intervals [place] Rate: 72 P: 34 NH: 160 QRS: 51 QRSD: 85 T: 61 QT: 363 QTc: 398 Interpretive Statements SINUS RHYTHM Electronically Signed on 05-25-2019 21:03:34 EST by Kishor Layton
== END 2019-05-25 17:56 | disposition home or self-care (01) ==
LOC: M ED 15:47
DX: R07.89 Other chest pain (principal); Z79.899 Other long term (current) drug therapy; Z88.8 Allergy status to other drugs, medicaments and biological substances

== ENCOUNTER 2019-08-23 10:41 | Emergency (ER) | payer BC, OTHER ==
[~2019-08-23] VITALS: Ht 170.2 cm; Wt 98.5 kg
[~2019-08-23 10:41] MED LIST changes: +CELE1CAP7; +CLON0.5T2 PO; -CLON0.5T8 PO; +FLUO20CA20 PO; -FLUO20CA8 PO; +TIZA4TAB4; -TRAZ-163 PO; +TRAZ-257 PO
[2019-08-23] MEDS ORDERED: OLAN10TA2 PO (10:55)
[2019-08-23] MEDS ORDERED: ESTR625TA (10:55)
[2019-08-23] MEDS ORDERED: MIRA0.5T PO (10:55)
[2019-08-23] MEDS ORDERED: SUMA100T2 (10:55)
[2019-08-23 12:15] LABS: INFLUENZA A AMPLIFICATION NEGATIVE (NEGATIVE); INFLUENZA B AMPLIFICATION NEGATIVE (NEGATIVE)
[2019-08-23] MEDS ORDERED: ONDANSETRON 4 MG ORAL DISINTEGRATING TAB (Q0162 PER 1MG) PO ONE (12:15)
--- NOTE | 2019-08-23 13:08 | REP ---
Chest x-ray: Two views. History: 52, history of pneumonia, increased dyspnea . Comparison study: May 25, 2019 . Findings: The lungs are well inflated and free of infiltrate. The pleural angles are sharp. The heart size is normal. Pulmonary vasculature is not increased. No significant bony abnormality is seen. Impression: Negative chest x-ray. Electronically Signed by Greg Cazares MD 08/23/2019 12:59 P
[2019-08-23] MEDS ORDERED: PANT20TA2 PO (13:23)
[2019-08-23] MEDS ORDERED: SUCR1ORA PO (13:23)
[2019-08-23 13:32] VITALS: BP 124/55
== END 2019-08-23 13:33 | disposition home or self-care (01) ==
LOC: M ED 10:41
DX: K29.70 Gastritis, unspecified, without bleeding (principal); B34.9 Viral infection, unspecified; Z20.89 Contact with and (suspected) exposure to other communicable diseases; Z87.01 Personal history of pneumonia (recurrent); G47.30 Sleep apnea, unspecified; J45.909 Unspecified asthma, uncomplicated; Z98.84 Bariatric surgery status; F17.200 Nicotine dependence, unspecified, uncomplicated; Z79.899 Other long term (current) drug therapy; Z88.8 Allergy status to other drugs, medicaments and biological substances
CPT/HCPCS: 71046; 87502; 99283; Q0162

== ENCOUNTER 2019-09-02 12:26 | Emergency (ER) | payer BC, OTHER ==
[~2019-09-02] VITALS: Ht 170.2 cm; Wt 98.0 kg
[~2019-09-02 12:26] MED LIST changes: +ESTR625TA; -FLUO20CA19 PO; +FLUO20CA22 PO; -LIDO1SOL8 PO; +LIDO2SOL17 PO; +PANT20TA2 PO; -ROPI1TAB PO; +ROPI1TAB3 PO; +SUCR1ORA PO; +SUMA100T2
[2019-09-02] MEDS ORDERED: KETOROLAC 60 MG/2 ML VIAL (J1885) IM ONE (14:15)
[2019-09-02] MEDS ORDERED: ACETAMINOPHEN 325 MG TAB PO ONE (14:15)
[2019-09-02] MEDS ORDERED: PENI500T PO (15:09)
[2019-09-02] MEDS ORDERED: KETO10TAB PO (15:09)
[2019-09-02 15:31] VITALS: BP 102/64
== END 2019-09-02 15:33 | disposition home or self-care (01) ==
LOC: M ED 12:26
DX: K02.9 Dental caries, unspecified (principal); K08.89 Other specified disorders of teeth and supporting structures; F17.200 Nicotine dependence, unspecified, uncomplicated; Z79.899 Other long term (current) drug therapy; Z88.8 Allergy status to other drugs, medicaments and biological substances
CPT/HCPCS: 96372; 99283; J1885

== ENCOUNTER → 2019-11-03 | Outpatient (REF) | payer OTHER ==
[~2019-11-03] MED LIST changes: +PENI500T PO
[2019-11-03 12:50] LABS: BASO # 0.1 10^3/uL (0.0-0.2); BASO % 0.6 % (0.0-1.0); EOS # 0.2 10^3/uL (0.0-0.5); EOS % 1.5 % (0.0-3.0); HEMATOCRIT 43.7 % (36.0-47.0); HEMOGLOBIN 13.8 g/dl (12.0-15.5); LYMPH # 3.7 10^3/uL (1.5-5.0); LYMPH % 37.5 % (24.0-44.0); MEAN CORPUSCULAR HEMOGLOBIN 28.3 pg (27.0-33.0); MEAN CORPUSCULAR HGB CONC 31.6 g/dl (32.0-36.5); MEAN CORPUSCULAR VOLUME 89.7 fl (80.0-96.0); MONO # 0.9 10^3/uL (0.0-0.8); MONO % 8.7 % (0.0-5.0); NEUTROPHILS % 51.4 % (36.0-66.0); PLATELET COUNT, AUTOMATED 441 10^3/uL (150-450); RED BLOOD COUNT 4.87 10^6/uL (4.00-5.40); WHITE BLOOD COUNT 9.8 10^3/uL (4.0-10.0)
[2019-11-03 13:18] LABS: ALBUMIN 3.8 GM/DL (3.2-5.2); ALT/SGPT 21 U/L (12-78); BILIRUBIN,TOTAL 0.7 MG/DL (0.2-1.0); BLOOD UREA NITROGEN 15 MG/DL (7-18); CALCIUM LEVEL 9.6 MG/DL (8.5-10.1); CARBON DIOXIDE LEVEL 28 MEQ/L (21-32); CHLORIDE LEVEL 108 MEQ/L (98-107); CHOLESTEROL LEVEL 200 MG/DL (<200); CHOLESTEROL RISK RATIO 2.702 (<5); CREATININE FOR GFR 0.88 MG/DL (0.55-1.30); FERRITIN 4 NG/ML (8-252); FOLATE 12.5 NG/ML; GLOMERULAR FILTRATION RATE > 60.0 (>58); GLUCOSE, FASTING 90 MG/DL (70-100); HDL CHOLESTEROL 74 MG/DL (>40); IRON (FE) 44 UG/DL (50-170); LDL CHOLESTEROL 101 MG/DL (<100); NON-HDL-C 126 MG/DL; POTASSIUM SERUM 3.9 MEQ/L (3.5-5.1); SODIUM LEVEL 143 MEQ/L (136-145); THYROID STIMULATING HORMONE 0.304 uIU/ML (0.358-3.740); TOTAL 25(OH) VITAMIN D 17.8 NG/ML (30.0-100.0); TOTAL PROTEIN 7.5 GM/DL (6.4-8.2); TRIGLYCERIDES LEVEL 124 MG/DL (<150); VITAMIN B12 LEVEL 208 PG/ML
== END ==
LOC: M LAB REF 12:23
PROVIDERS: ATTEND Physician Assistant
DX: K91.2 Postsurgical malabsorption, not elsewhere classified (principal); Z98.84 Bariatric surgery status; G25.81 Restless legs syndrome; F41.0 Panic disorder [episodic paroxysmal anxiety]; F31.62 Bipolar disorder, current episode mixed, moderate

== ENCOUNTER 2020-03-01 21:00 | Emergency (ER) | payer BC, OTHER ==
[~2020-03-01 21:00] MED LIST changes: +ASCO250T20 PO; +METOCLOPRAMIDE INJ 10MG/2ML VIAL (J2765 PER 1) As Ordered ONE; +METOCLOPRAMIDE INJ 10MG/2ML VIAL (J2765 PER 1) ONE; -PANT20TA2 PO; +PANT20TA6 PO; -VITA1TAB23 PO
[2020-03-01] MEDS ORDERED: ISOVUE-370 76% 100ML VIAL As Ordered ONE (21:15)
[2020-03-01] MEDS ORDERED: KETOROLAC 30 MG/ML 1ML VIAL ONE (23:00)
[2020-03-01] MEDS ORDERED: KETOROLAC 30 MG/ML 1ML VIAL As Ordered ONE (23:08)
[2020-04-15 13:13] LABS: BASO # 0.1 10^3/uL (0.0-0.2); BASO % 0.7 % (0.0-1.0); EOS # 0.2 10^3/uL (0.0-0.5); EOS % 1.7 % (0.0-3.0); HEMATOCRIT 37.3 % (36.0-47.0); LYMPH # 2.8 10^3/uL (1.5-5.0); LYMPH % 29.5 % (24.0-44.0); MEAN CORPUSCULAR HGB CONC 32.2 g/dl (32.0-36.5); MEAN CORPUSCULAR VOLUME 86.9 fl (80.0-96.0); MONO # 0.7 10^3/uL (0.0-0.8); MONO % 7.4 % (0.0-5.0); NEUTROPHILS # 5.8 10^3/uL (1.5-8.5); NEUTROPHILS % 60.4 % (36.0-66.0); PLATELET COUNT, AUTOMATED 347 10^3/uL (150-450); RED BLOOD COUNT 4.29 10^6/uL (4.00-5.40); WHITE BLOOD COUNT 9.5 10^3/uL (4.0-10.0)
[2020-04-15 13:34] LABS: INR 0.96; PARTIAL THROMBOPLASTIN TIME 51.3 SECONDS (24.2-38.5)
== END 2020-03-01 23:23 | disposition home or self-care (01) ==
LOC: M ED 21:00
DX: S16.1XXA Strain of muscle, fascia and tendon at neck level, initial encounter (principal); R51 Headache; R10.84 Generalized abdominal pain; V49.40XA Driver injured in collision with unspecified motor vehicles in traffic accident, initial encounter; K59.00 Constipation, unspecified; M47.812 Spondylosis without myelopathy or radiculopathy, cervical region; Z79.899 Other long term (current) drug therapy
CPT/HCPCS: 70450; 72125; 74177; 80048; 80076; 83690; 84702; 84703; 85025; 85610; 85730; 96374; 96375; 99284; J1885; J2765; Q9967

== ENCOUNTER → 2020-03-04 | Outpatient (REF) | payer OTHER ==
[~2020-03-04] MED LIST changes: -METOCLOPRAMIDE INJ 10MG/2ML VIAL (J2765 PER 1) As Ordered ONE; -METOCLOPRAMIDE INJ 10MG/2ML VIAL (J2765 PER 1) ONE
== END ==
LOC: M WUC 12:45
PROVIDERS: ATTEND Physician Assistant
DX: Z32.00 Encounter for pregnancy test, result unknown (principal)

== ENCOUNTER → 2020-03-12 | Outpatient (CLI) | payer OTHER | LOC: M WUC 14:40 | PROVIDERS: ATTEND Obstetrics & Gynecology | DX: N91.4 Secondary oligomenorrhea (principal) ==

== ENCOUNTER 2020-07-17 13:28 | Emergency (ER) | payer BC, OTHER ==
[~2020-07-17] VITALS: Ht 170.2 cm; Wt 87.7 kg
[2020-07-17] MEDS ORDERED: METOCLOPRAMIDE INJ 10MG/2ML VIAL (J2765 PER 1) IV ONE (14:00)
[2020-07-17] MEDS ORDERED: ACETAMINOPHEN 500 MG TAB PO ONE (14:00)
--- NOTE | 2020-07-17 14:12 | REP ---
INDICATION: right sided headache- acute. COMPARISON: Comparison head CT study March 01, 2020.. TECHNIQUE: Helical scanning is acquired. 5 mm axial images were reformatted. Coronal MPR images were generated. FINDINGS: Bone window settings demonstrate an intact bony calvarium. There is no evidence of skull fracture or incidental bony calvarial lesion. The visualized paranasal sinuses appear clear. No intraorbital abnormality is seen. On soft tissue window setting images; the lateral, third, and fourth ventricles are normal in size and position. Patel-white differentiation pattern is normal above and below the tentorium. There are is no evidence of intracranial hemorrhage. No mass, edema, infarction, or midline shift is seen. No extra-axial fluid collection is appreciated. IMPRESSION: Negative noncontrast head CT. <Electronically signed by Lewis Cazares > 07/17/20 [id number]
[2020-07-17] MEDS ORDERED: KETOROLAC 30 MG/ML 1ML VIAL IV ONE (14:30)
[2020-07-17 14:35] LABS: HEMATOCRIT 39.3 % (36.0-47.0); HEMOGLOBIN 11.8 g/dl (12.0-15.5); MEAN CORPUSCULAR HEMOGLOBIN 26.8 pg (27.0-33.0); MEAN CORPUSCULAR VOLUME 89.3 fl (80.0-96.0); PLATELET COUNT, AUTOMATED 314 10^3/uL (150-450); WHITE BLOOD COUNT 6.4 10^3/uL (4.0-10.0)
[2020-07-17 15:12] LABS: ALBUMIN 3.6 GM/DL (3.2-5.2); ALT/SGPT 17 U/L (12-78); BILIRUBIN,DIRECT 0.1 MG/DL (0.0-0.2); BILIRUBIN,TOTAL 0.4 MG/DL (0.2-1.0); BLOOD UREA NITROGEN 12 MG/DL (7-18); CALCIUM LEVEL 8.8 MG/DL (8.5-10.1); CARBON DIOXIDE LEVEL 29 MEQ/L (21-32); CHLORIDE LEVEL 111 MEQ/L (98-107); CREATININE FOR GFR 0.81 MG/DL (0.55-1.30); GLOMERULAR FILTRATION RATE > 60.0 (>58); GLUCOSE, FASTING 82 MG/DL (70-100); MAGNESIUM LEVEL 2.3 MG/DL (1.8-2.4); POTASSIUM SERUM 4.2 MEQ/L (3.5-5.1); SODIUM LEVEL 144 MEQ/L (136-145); TOTAL PROTEIN 6.5 GM/DL (6.4-8.2)
[2020-07-17 16:41] VITALS: BP 107/55
== END 2020-07-17 16:45 | disposition home or self-care (01) ==
LOC: M ED 13:28 → EDBD 13:28 → M ED 16:45
DX: R51.9 Headache, unspecified (principal); G47.33 Obstructive sleep apnea (adult) (pediatric); G43.909 Migraine, unspecified, not intractable, without status migrainosus; J45.909 Unspecified asthma, uncomplicated; Z98.84 Bariatric surgery status; F17.200 Nicotine dependence, unspecified, uncomplicated; Z79.899 Other long term (current) drug therapy; Z88.8 Allergy status to other drugs, medicaments and biological substances
CPT/HCPCS: 70450; 80048; 80076; 83735; 85027; 96374; 96375; 99284; J1885; J2765

== ENCOUNTER → 2021-06-04 | Outpatient (CLI) | payer BC, OTHER ==
[~2021-06-04] MED LIST changes: +CYMB60CA4 PO; +GABA-283 PO; -GABA-845 PO; -OLAN10TA2 PO; -OLAN15TA PO; +OLAN15TA13 PO; +OLAN1TAB20 PO
[2021-06-04 16:44] LABS: CHOLESTEROL RISK RATIO 2.676 (<5); FREE THYROXINE INDEX 2.7 % (1.3-4.8); THYROID STIMULATING HORMONE 0.277 uIU/ML (0.358-3.740); THYROXINE (T4) 7.6 UG/DL (4.5-12.0); TOTAL 25(OH) VITAMIN D 28.6 NG/ML (30.0-100.0)
[2021-06-04 17:44] LABS: HEMOGLOBIN A1c 5.3 %
== END ==
LOC: M WUC 11:40
PROVIDERS: ATTEND Nurse Practitioner Psychiatric/Mental Health
DX: F43.23 Adjustment disorder with mixed anxiety and depressed mood (principal); F31.60 Bipolar disorder, current episode mixed, unspecified; Z79.899 Other long term (current) drug therapy

== ENCOUNTER → 2021-06-06 | Outpatient (CLI) | payer BC, OTHER ==
--- NOTE | 2021-06-06 16:31 | REP ---
INDICATION: RIGHT BREAST MASTODYNIA. COMPARISON: Screening mammogram, 04/27/2014. TECHNIQUE: 2D and 3D cc and MLO views of both breasts were obtained. FINDINGS: The Volpara volumetric breast density pattern is B, there are scattered areas of fibroglandular density.. IMPRESSION: BIRADS/ACR : Category 1: Negative. This mammogram was interpreted with the aid of an FDA-approved computer-aided detection system. The patient letter being requested is M1. RECOMMENDATION: Follow-up screening mammography recommended 1 year (for women over 40). <Electronically signed by Kain Almeida > 06/06/21 [id number]
== END ==
LOC: M WHC 15:14
PROVIDERS: ATTEND Physician Assistant
DX: N64.4 Mastodynia (principal)
CPT/HCPCS: 77066; G0279

== ENCOUNTER → 2022-07-27 | Outpatient (REF) | payer BC, OTHER ==
[~2022-07-27] MED LIST changes: +FLUO-96 PO; -FLUO20CA20 PO; -PAXI20TA29 PO; +PAXI20TA30 PO; +TIZA10TA; -TIZA4TAB4
[2022-07-27 18:02] LABS: THYROID STIMULATING HORMONE 0.475 uIU/ML (0.55-4.78)
[2022-07-27 18:03] LABS: FOLATE > 24.0 NG/ML (>5.4); TOTAL 25(OH) VITAMIN D 25.3 NG/ML (20.0-100.0)
[2022-07-27 18:10] LABS: VITAMIN B12 LEVEL 169 PG/ML (211-911)
== END ==
LOC: M LAB REF 16:24
PROVIDERS: ATTEND Physician Assistant
DX: E04.2 Nontoxic multinodular goiter (principal); E55.9 Vitamin D deficiency, unspecified; E53.8 Deficiency of other specified B group vitamins

== ENCOUNTER → 2022-10-21 | Outpatient (REF) | payer OTHER, BC ==
[~2022-10-21] MED LIST changes: +LIDO15SO PO; -LIDO2SOL17 PO
[2022-10-21 19:16] LABS: THYROID STIMULATING HORMONE 0.551 uIU/ML (0.55-4.78)
[2022-10-21 19:18] LABS: FREE T4 0.93 NG/DL (0.89-1.76)
== END ==
LOC: M LAB REF 16:26
PROVIDERS: ATTEND Physician Assistant
DX: E53.8 Deficiency of other specified B group vitamins (principal); E05.90 Thyrotoxicosis, unspecified without thyrotoxic crisis or storm

== ENCOUNTER 2024-01-10 12:41 | Inpatient (IN) | payer BC, OTHER ==
[~2024-01-10] VITALS: Ht 170.2 cm; Wt 79.1 kg
[~2024-01-10 12:41] MED LIST changes: -CELE1CAP7; +CELE1CAP99; +DIAZ-654 PO; +FLUO-365 PO; -FLUO20CA22 PO; -GABA-283 PO; +GABA-284 PO; -LIDO15SO PO; +LIDO15SO8 PO; -ROPI1TAB3 PO; +ROPI1TAB73 PO; -VALI10TA PO
[2024-01-10] MEDS ORDERED: CLON1TAB8 PO (12:55)
[2024-01-10] MEDS ORDERED: FLUO40CA PO (12:55)
[2024-01-10 13:32] LABS: HEMATOCRIT 40.7 % (36.0-47.0); HEMOGLOBIN 12.9 g/dl (12.0-15.5); MEAN CORPUSCULAR HEMOGLOBIN 27.2 pg (27.0-33.0); MEAN CORPUSCULAR HGB CONC 31.7 g/dl (32.0-36.5); MEAN CORPUSCULAR VOLUME 85.7 fl (80.0-96.0); PLATELET COUNT, AUTOMATED 365 10^3/uL (150-450); RED BLOOD COUNT 4.75 10^6/uL (4.00-5.40); WHITE BLOOD COUNT 8.2 10^3/uL (4.0-10.0)
[2024-01-10 13:56] LABS: ETHYL ALCOHOL (ETHANOL) 0.077 % (0.000-0.010); SALICYLATE LEVEL < 3.0 MG/DL (<30)
[2024-01-10 13:57] LABS: ALBUMIN 3.9 G/DL (3.2-5.2); ALKALINE PHOSPHATASE 79 U/L (46-116); ALT/SGPT 23 U/L (7.0-40); AST/SGOT 13 U/L (<34); BILIRUBIN,DIRECT 0.1 MG/DL (<0.4); BILIRUBIN,TOTAL 0.4 MG/DL (0.3-1.2); BLOOD UREA NITROGEN 10 MG/DL (9-23); CALCIUM LEVEL 9.1 MG/DL (8.5-10.1); CARBON DIOXIDE LEVEL 24 MMOL/L (20-31); CHLORIDE LEVEL 110 MMOL/L (98-107); CREATININE FOR GFR 0.54 MG/DL (0.55-1.30); GLOMERULAR FILTRATION RATE > 60.0 (>51); GLUCOSE, FASTING 81 MG/DL (60-100); POTASSIUM SERUM 3.9 MMOL/L (3.5-5.1); SODIUM LEVEL 139 MMOL/L (136-145); TOTAL PROTEIN 6.9 G/DL (5.7-8.2)
[2024-01-10 14:01] LABS: THYROID STIMULATING HORMONE 0.575 uIU/ML (0.55-4.78)
[2024-01-10 14:10] LABS: HCG, SERUM QUALITATIVE NEGATIVE (NEGATIVE)
[2024-01-10 14:20] LABS: AMPHETAMINES LEVEL URINE NEGATIVE (NEGATIVE); BARBITURATES URINE NEGATIVE (NEGATIVE); BENZODIAZEPINES URINE NEGATIVE (NEGATIVE); COCAINE METABOLITE URINE NEGATIVE (NEGATIVE); METHADONE URINE NEGATIVE (NEGATIVE)
[2024-01-10 14:21] LABS: CANNABINOIDS URINE NEGATIVE (NEGATIVE); OPIATES URINE NEGATIVE (NEGATIVE); PHENCYCLIDINE URINE NEGATIVE (NEGATIVE)
[2024-01-10] MEDS ORDERED: VRAY4.5C PO (16:27)
[2024-01-10] MEDS ORDERED: LAMO150T3 PO (16:27)
[2024-01-10] MEDS ORDERED: HOME MED LIST COMPLETE! XX SCH (16:30)
[2024-01-10] MEDS: NICOTINE 21MG/24HR 1 EA TRANSDERMAL TD ONE (16:34)
[2024-01-10] MEDS: ACETAMINOPHEN TAB 650MG DOSE (2X325MG) PO ONE (16:34)
[2024-01-10] MEDS: FLUoxetine 20MG CAP PO SCH (20:24)
[2024-01-10] MEDS: lamoTRIgine 100MG TAB PO SCH (20:25)
[2024-01-10] MEDS: clonazePAM 1 MG TAB PO SCH (20:26)
[2024-01-10] MEDS: CARIPRAZINE 1.5MG CAPSULE (VRAYLAR) PO SCH (20:40)
[2024-01-11] MEDS ORDERED: diphenhydrAMINE 25MG CAP PO PRN (17:35)
[2024-01-11] MEDS ORDERED: MOM 30ML SUSPENSION UDC PO PRN (17:35)
[2024-01-11] MEDS ORDERED: MAALOX 30 ML SUSP *UDC PO PRN (17:35)
[2024-01-11] MEDS ORDERED: ACETAMINOPHEN TAB 650MG DOSE (2X325MG) PO PRN (17:35)
[2024-01-11] MEDS ORDERED: IBUPROFEN 400MG TAB PO PRN (17:35)
[2024-01-11 18:42] VITALS: BP 117/67; TEMP 97.8
[2024-01-11] MEDS: CARIPRAZINE 1.5MG CAPSULE (VRAYLAR) PO ONE (21:23)
[2024-01-11] MEDS: clonazePAM 1 MG TAB PO ONE (21:23)
[2024-01-11] MEDS: traZODone 50 MG TAB PO PRN (21:23)
[2024-01-11] MEDS: FLUoxetine 20MG CAP PO ONE (21:23)
[2024-01-11] MEDS: lamoTRIgine 100MG TAB PO ONE (21:24)
[2024-01-12 06:29] VITALS: BP 110/65; TEMP 98.4; O2SAT 97
[2024-01-12] MEDS: NICOTINE 21MG/24HR 1 EA TRANSDERMAL TD PRN (08:07)
[2024-01-12] MEDS: clonazePAM 1 MG TAB PO SCH (11:10)
[2024-01-12 17:52] VITALS: BP 113/58; TEMP 98.4
[2024-01-12] MEDS: FLUoxetine 20MG CAP PO SCH (20:10)
[2024-01-12] MEDS: CARIPRAZINE 3MG CAPSULE (VRAYLAR) PO SCH (20:10)
[2024-01-12] MEDS: OLANZapine 5 MG TAB PO PRN (20:10)
[2024-01-12] MEDS: lamoTRIgine 100MG TAB PO SCH (20:11)
[2024-01-13 06:37] VITALS: BP 112/55; TEMP 98.3; O2SAT 98
[2024-01-13 18:08] VITALS: BP 111/61; TEMP 98.3; O2SAT 99
[2024-01-13] MEDS: PILL CUTTER 1 EACH XX PRN (20:31)
[2024-01-13] MEDS: traZODone 50 MG TAB PO PRN (20:31)
[2024-01-14 06:22] VITALS: BP 104/56; TEMP 96.8; O2SAT 98
[2024-01-14] MEDS ORDERED: TRAZ-252 PO (08:56)
[2024-01-14] MEDS ORDERED: LAMO150T3 PO (08:56)
[2024-01-14] MEDS ORDERED: FLUO-365 PO (08:56)
[2024-01-14] MEDS ORDERED: NICO21PAT TD (08:56)
[2024-01-14] MEDS ORDERED: OLAN1TAB16 PO (08:56)
[2024-01-14] MEDS ORDERED: VRAY6CAP PO (08:56)
== END 2024-01-14 11:19 | disposition home or self-care (01) | DRG 885 ==
LOC: M ED 12:41 → M PSY 01-11 17:34
PROVIDERS: ADMIT Student in an Organized Health Care Education/Training Program; ATTEND Student in an Organized Health Care Education/Training Program
DX: F31.60 Bipolar disorder, current episode mixed, unspecified (principal); R45.851 Suicidal ideations; Z88.8 Allergy status to other drugs, medicaments and biological substances; Z79.899 Other long term (current) drug therapy; G25.81 Restless legs syndrome; G47.33 Obstructive sleep apnea (adult) (pediatric); Z91.119 Patient's noncompliance with dietary regimen due to unspecified reason; G62.9 Polyneuropathy, unspecified; F17.200 Nicotine dependence, unspecified, uncomplicated; G89.29 Other chronic pain

== ENCOUNTER 2024-03-07 20:09 | Inpatient (IN) | payer BC, OTHER ==
[~2024-03-07] VITALS: Ht 170.2 cm; Wt 77.8 kg
[~2024-03-07 20:09] MED LIST changes: +CLON1TAB8 PO; +FLUO40CA PO; +LAMO150T3 PO; +NICO21PAT TD; +OLAN1TAB16 PO; +VRAY4.5C PO; +VRAY6CAP PO
[2024-03-07 21:06] LABS: HEMATOCRIT 40.9 % (36.0-47.0); HEMOGLOBIN 12.7 g/dl (12.0-15.5); MEAN CORPUSCULAR HEMOGLOBIN 27.1 pg (27.0-33.0); MEAN CORPUSCULAR HGB CONC 31.1 g/dl (32.0-36.5); MEAN CORPUSCULAR VOLUME 87.2 fl (80.0-96.0); PLATELET COUNT, AUTOMATED 384 10^3/uL (150-450); RED BLOOD COUNT 4.69 10^6/uL (4.00-5.40); WHITE BLOOD COUNT 7.7 10^3/uL (4.0-10.0)
[2024-03-07 21:31] LABS: HCG, SERUM QUALITATIVE NEGATIVE (NEGATIVE)
[2024-03-07 21:38] LABS: ETHYL ALCOHOL (ETHANOL) 0.092 % (0.000-0.010)
[2024-03-07 21:40] LABS: ALKALINE PHOSPHATASE 78 U/L (46-116); ALT/SGPT 22 U/L (7.0-40); AST/SGOT 16 U/L (<34); BILIRUBIN,DIRECT < 0.1 MG/DL (<0.4); BILIRUBIN,TOTAL 0.2 MG/DL (0.3-1.2); BLOOD UREA NITROGEN 9 MG/DL (9-23); CALCIUM LEVEL 8.7 MG/DL (8.5-10.1); CARBON DIOXIDE LEVEL 26 MMOL/L (20-31); CHLORIDE LEVEL 112 MMOL/L (98-107); CREATININE FOR GFR 0.63 MG/DL (0.55-1.30); GLOMERULAR FILTRATION RATE > 60.0 (>51); GLUCOSE, FASTING 79 MG/DL (60-100); POTASSIUM SERUM 3.9 MMOL/L (3.5-5.1); SALICYLATE LEVEL < 3.0 MG/DL (<30); SODIUM LEVEL 145 MMOL/L (136-145); TOTAL PROTEIN 7.3 G/DL (5.7-8.2)
[2024-03-07 21:42] LABS: THYROID STIMULATING HORMONE 0.244 uIU/ML (0.55-4.78)
[2024-03-07 22:04] LABS: METHADONE URINE NEGATIVE (NEGATIVE); OPIATES URINE NEGATIVE (NEGATIVE); PHENCYCLIDINE URINE NEGATIVE (NEGATIVE)
[2024-03-07 22:05] LABS: BARBITURATES URINE NEGATIVE (NEGATIVE); BENZODIAZEPINES URINE NEGATIVE (NEGATIVE); CANNABINOIDS URINE NEGATIVE (NEGATIVE); COCAINE METABOLITE URINE NEGATIVE (NEGATIVE)
[2024-03-07 22:15] LABS: AMPHETAMINES LEVEL URINE POSITIVE (NEGATIVE)
[2024-03-07] MEDS ORDERED: VRAY6CAP PO (23:42)
[2024-03-07] MEDS ORDERED: LISD30CA PO (23:44)
[2024-03-07] MEDS ORDERED: HOME MED LIST COMPLETE! XX SCH (23:45)
[2024-03-08] MEDS ORDERED: IBUPROFEN 400MG TAB PO PRN (00:45)
[2024-03-08] MEDS ORDERED: MOM 30ML SUSPENSION UDC PO PRN (00:45)
[2024-03-08] MEDS ORDERED: MAALOX 30 ML SUSP *UDC PO PRN (00:45)
[2024-03-08] MEDS ORDERED: ACETAMINOPHEN TAB 650MG DOSE (2X325MG) PO PRN (00:45)
[2024-03-08] MEDS: CARIPRAZINE 3MG CAPSULE (VRAYLAR) PO ONE (00:54)
[2024-03-08] MEDS: lamoTRIgine 100MG TAB PO ONE ×2 (00:54→21:28)
[2024-03-08] MEDS: traZODone 25MG PER 1/2 TABLET PO ONE (00:54)
[2024-03-08] MEDS: FLUoxetine 20MG CAP PO ONE (00:54)
[2024-03-08 01:03] VITALS: BP 116/67; TEMP 98; O2SAT 95
[2024-03-08 06:41] VITALS: BP 109/57; TEMP 98.9; O2SAT 99
[2024-03-08] MEDS: NICOTINE 21MG/24HR 1 EA TRANSDERMAL TD SCH (08:07)
[2024-03-08] MEDS: clonazePAM 1 MG TAB PO PRN (14:26)
[2024-03-08 16:40] VITALS: BP 128/60; TEMP 97.7; O2SAT 98
[2024-03-08 20:42] LABS: FREE T4 1.12 NG/DL (0.89-1.76)
[2024-03-08] MEDS: CARIPRAZINE 3MG CAPSULE (VRAYLAR) PO SCH (21:08)
[2024-03-08] MEDS: FLUoxetine 20MG CAP PO SCH (21:08)
[2024-03-08 22:56] LABS: FREE T3 3.4 PG/ML (2.3-4.2)
[2024-03-09 06:06] VITALS: BP 116/57; TEMP 97.1; O2SAT 96
[2024-03-09] MEDS: NALTREXONE 50 MG TAB PO SCH (11:14)
[2024-03-09 17:14] VITALS: BP 115/68; TEMP 96.7; O2SAT 100
[2024-03-09] MEDS: lamoTRIgine 100MG TAB PO SCH (20:04)
[2024-03-10] MEDS ORDERED: NALT50TA4 PO (06:21)
[2024-03-10 06:35] VITALS: BP 108/56; TEMP 96.6; O2SAT 100
== END 2024-03-10 10:51 | disposition home or self-care (01) | DRG 885 ==
LOC: M ED 20:09 → M ED INP 23:46 → M PSY 03-08 00:20
PROVIDERS: ADMIT Psychiatry & Neurology Psychiatry; ATTEND Psychiatry & Neurology Child & Adolescent Psychiatry
DX: F31.60 Bipolar disorder, current episode mixed, unspecified (principal); F10.229 Alcohol dependence with intoxication, unspecified; F43.20 Adjustment disorder, unspecified; N39.3 Stress incontinence (female) (male); F17.210 Nicotine dependence, cigarettes, uncomplicated; G25.81 Restless legs syndrome; Z98.84 Bariatric surgery status; Z90.49 Acquired absence of other specified parts of digestive tract; Z81.8 Family history of other mental and behavioral disorders; Z56.0 Unemployment, unspecified; Z79.899 Other long term (current) drug therapy; Z88.8 Allergy status to other drugs, medicaments and biological substances

== ENCOUNTER → 2024-06-20 | Outpatient (CLI) | payer BC, OTHER ==
[~2024-06-20] MED LIST changes: -CYCL5TAB PO; +CYCL5TAB4 PO; +ISOVUE-370 76% 100ML VIAL ONE; +LISD30CA PO; +NALT50TA4 PO; -OLAN15TA13 PO; +OLAN15TA69 PO
== END ==
LOC: M PLAIMG 08:18
PROVIDERS: ATTEND Physician Assistant Surgical
DX: K91.2 Postsurgical malabsorption, not elsewhere classified (principal); Z98.84 Bariatric surgery status
CPT/HCPCS: 74177; Q9967

== ENCOUNTER → 2024-07-28 | Outpatient (CLI) | payer BC ==
[~2024-07-28] MED LIST changes: -ISOVUE-370 76% 100ML VIAL ONE
== END ==
LOC: M RAD 09:20
PROVIDERS: ATTEND Physician Assistant Surgical
DX: R10.11 Right upper quadrant pain (principal); K76.0 Fatty (change of) liver, not elsewhere classified; R11.2 Nausea with vomiting, unspecified; Z98.84 Bariatric surgery status

== ENCOUNTER → 2024-08-15 | Outpatient (CLI) | payer BC ==
[2024-08-15 11:49] LABS: BASO % 0.6 % (0.0-1.0); EOS % 0.3 % (0.0-3.0); HEMATOCRIT 37.7 % (36.0-47.0); HEMOGLOBIN 12.4 g/dl (12.0-15.5); LYMPH # 1.7 10^3/uL (1.5-5.0); MEAN CORPUSCULAR HEMOGLOBIN 28.2 pg (27.0-33.0); MEAN CORPUSCULAR HGB CONC 32.9 g/dl (32.0-36.5); MEAN CORPUSCULAR VOLUME 85.9 fl (80.0-96.0); MONO # 0.6 10^3/uL (0.0-0.8); MONO % 9.2 % (2.0-8.0); NEUTROPHILS # 4.1 10^3/uL (1.5-8.5); NEUTROPHILS % 63.6 % (36.0-66.0); PLATELET COUNT, AUTOMATED 447 10^3/uL (150-450); RED BLOOD COUNT 4.39 10^6/uL (4.00-5.40); WHITE BLOOD COUNT 6.5 10^3/uL (4.0-10.0)
[2024-08-15 12:13] LABS: ALBUMIN 3.6 G/DL (3.2-5.2); ALKALINE PHOSPHATASE 85 U/L (35-104); ALT/SGPT 23 U/L (7.0-40); AST/SGOT 17 U/L (<34); BILIRUBIN,TOTAL 0.6 MG/DL (0.3-1.2); BLOOD UREA NITROGEN 11 MG/DL (9-23); CARBON DIOXIDE LEVEL 28 MMOL/L (20-31); CHLORIDE LEVEL 106 MMOL/L (98-107); CREATININE FOR GFR 0.69 MG/DL (0.55-1.30); GLOMERULAR FILTRATION RATE > 60.0 (>51); GLUCOSE, FASTING 84 MG/DL (60-100); POTASSIUM SERUM 4.5 MMOL/L (3.5-5.1); SODIUM LEVEL 143 MMOL/L (136-145); TOTAL PROTEIN 6.8 G/DL (5.7-8.2)
[2024-08-15 12:35] LABS: HEMOGLOBIN A1c 5.4 % (4.0-6.0)
== END ==
LOC: M LAB 10:59
PROVIDERS: ATTEND Physician Assistant Surgical
DX: E66.01 Morbid (severe) obesity due to excess calories (principal)

== ENCOUNTER 2025-01-28 15:42 | Emergency (ER) | payer BC ==
[~2025-01-28] VITALS: Ht 170.2 cm; Wt 67.6 kg
[~2025-01-28 15:42] MED LIST changes: -ABIL400I IM; -AMBI5TAB PO; -AMBI6.25 PO; +ARIP400S IM; +ZOLP-532 PO; +ZOLP6.2544 PO
[2025-01-28] MEDS ORDERED: HYDR-3363 (16:15)
[2025-01-28] MEDS ORDERED: VRAY1.5C (16:15)
[2025-01-28] MEDS ORDERED: ISOVUE-370 76% 100 ML VIAL As Ordered ONE (16:50)
[2025-01-28 17:06] LABS: PLATELET COUNT, AUTOMATED 323 10^3/uL (150-450)
[2025-01-28 17:10] LABS: KETONE, URINE AUTO RFX NEGATIVE (NEGATIVE); LEUKOCYTE ESTERASE UR AUTO RFX NEGATIVE (NEGATIVE); NITRITE, URINE AUTO RFX NEGATIVE (NEGATIVE); RBC, URINE AUTO RFX 0 /HPF (0-3); SQUAM EPITHELIAL CELL UR AURFX 1 /HPF (0-6); WBC, URINE AUTO RFX 0 /HPF (0-3)
[2025-01-28 17:30] LABS: AMPHETAMINES LEVEL URINE NEGATIVE (NEGATIVE); BARBITURATES URINE NEGATIVE (NEGATIVE); BENZODIAZEPINES URINE NEGATIVE (NEGATIVE); COCAINE METABOLITE URINE NEGATIVE (NEGATIVE)
[2025-01-28 17:31] LABS: CANNABINOIDS URINE NEGATIVE (NEGATIVE); METHADONE URINE NEGATIVE (NEGATIVE); OPIATES URINE NEGATIVE (NEGATIVE); PHENCYCLIDINE URINE NEGATIVE (NEGATIVE)
[2025-01-28 17:33] LABS: CK-MB VALUE MASS 1.0 NG/ML (<3.6)
[2025-01-28 17:34] LABS: ETHYL ALCOHOL (ETHANOL) < 0.003 % (0.000-0.010)
[2025-01-28 17:35] LABS: CPK CREATINE PHOSPHOKINASE 37 U/L (34-145); MB/CK RELATIVE INDEX 2.70 (< OR =4)
[2025-01-28 17:36] LABS: SALICYLATE LEVEL < 3.0 MG/DL (<30)
[2025-01-28 17:38] LABS: ALT/SGPT 26 U/L (7.0-40); AST/SGOT 20 U/L (<34); CALCIUM LEVEL 8.3 MG/DL (8.5-10.1); CARBON DIOXIDE LEVEL 25 MMOL/L (20-31); CHLORIDE LEVEL 106 MMOL/L (98-107); CREATININE FOR GFR 0.73 MG/DL (0.55-1.30); GLOMERULAR FILTRATION RATE > 90.0 (>51); POTASSIUM SERUM 4.3 MMOL/L (3.5-5.1); SODIUM LEVEL 141 MMOL/L (136-145)
[2025-01-28 18:37] LABS: CK-MB VALUE MASS < 1.0 NG/ML (<3.6); CPK CREATINE PHOSPHOKINASE 54 U/L (34-145)
[2025-01-28 19:12] LABS: C REACTIVE PROTEIN QUANTITATIV < 0.50 MG/DL (<1.0); ERYTHROCYTE SEDIMENTATION RATE 16 mm/hr (0-30)
[2025-01-28] MEDS: traZODone 50 MG TAB PO ONE (19:35)
[2025-01-28] MEDS ORDERED: MIRA3350 PO (19:45)
[2025-01-28 19:46] VITALS: BP 142/56; TEMP 97; O2SAT 98
== END 2025-01-28 19:58 | disposition home or self-care (01) ==
LOC: M ED 15:42
DX: R10.9 Unspecified abdominal pain (principal); F41.9 Anxiety disorder, unspecified; F31.9 Bipolar disorder, unspecified; G47.33 Obstructive sleep apnea (adult) (pediatric); D50.9 Iron deficiency anemia, unspecified; G25.81 Restless legs syndrome; G62.9 Polyneuropathy, unspecified; Z98.84 Bariatric surgery status; Z88.8 Allergy status to other drugs, medicaments and biological substances; F17.200 Nicotine dependence, unspecified, uncomplicated; Z90.49 Acquired absence of other specified parts of digestive tract; Z90.710 Acquired absence of both cervix and uterus; Z79.899 Other long term (current) drug therapy
CPT/HCPCS: 36415; 71045; 71275; 74177; 80047; 80048; 80076; 80143; 80307; 81001; 82077; 82550; 82553; 83605; 83690; 84145; 84443; 84484; 85027; 85652; 86140; 93005; 93041; 99285; Q9967

== ENCOUNTER 2025-03-28 14:15 | Emergency (ER) | payer BC ==
[~2025-03-28] VITALS: Ht 170.2 cm; Wt 65.7 kg
[~2025-03-28 14:15] MED LIST changes: +HYDR-3363; +MIRA3350 PO; -VITA500T17 PO; +VITA500T8 PO; +VRAY1.5C
[2025-03-28 15:44] LABS: BASO # 0.1 10^3/uL (0.0-0.2); BASO % 1.0 % (0.0-1.0); EOS # 0.1 10^3/uL (0.0-0.5); EOS % 2.0 % (0.0-3.0); LYMPH # 1.8 10^3/uL (1.5-5.0); LYMPH % 26.2 % (24.0-44.0); MONO # 0.6 10^3/uL (0.0-0.8); MONO % 8.0 % (2.0-8.0); NEUTROPHILS # 4.4 10^3/uL (1.5-8.5); NEUTROPHILS % 62.5 % (36.0-66.0); PLATELET COUNT, AUTOMATED 315 10^3/uL (150-450)
[2025-03-28 16:12] LABS: ALT/SGPT 22.0 U/L (7.0-40); AST/SGOT 39.0 U/L (<34)
[2025-03-28] MEDS: ONDANSETRON 4MG 2ML VIAL IV ONE (18:39)
[2025-03-28 20:29] VITALS: BP 117/67; TEMP 97.7; O2SAT 96
[2025-03-28] MEDS ORDERED: ONDA-282 PO (20:31)
== END 2025-03-28 20:43 | disposition home or self-care (01) ==
LOC: M ED 14:15
DX: R11.0 Nausea (principal); G47.33 Obstructive sleep apnea (adult) (pediatric); F41.9 Anxiety disorder, unspecified; F31.9 Bipolar disorder, unspecified; F17.200 Nicotine dependence, unspecified, uncomplicated; Z98.84 Bariatric surgery status; Z79.899 Other long term (current) drug therapy; Z88.8 Allergy status to other drugs, medicaments and biological substances
CPT/HCPCS: 80047; 80076; 83690; 85025; 96374; 99284; J2405

== ENCOUNTER 2025-04-02 14:30 | Inpatient (IN) | payer BC ==
[~2025-04-02] VITALS: Ht 170.2 cm; Wt 66.7 kg
[~2025-04-02 14:30] MED LIST changes: +ONDA-282 PO; -VRAY1.5C; +VRAY1.5C PO
[2025-04-02] MEDS ORDERED: BUSP10TA PO (15:17)
[2025-04-02] MEDS ORDERED: LAMO50TA PO (15:17)
[2025-04-02] MEDS ORDERED: FLUO-365 PO (15:17)
[2025-04-02] MEDS ORDERED: QUET1TAB17 PO (15:17)
[2025-04-02 15:27] LABS: PLATELET COUNT, AUTOMATED 234 10^3/uL (150-450)
[2025-04-02 15:48] LABS: AMPHETAMINES LEVEL URINE NEGATIVE (NEGATIVE); BARBITURATES URINE NEGATIVE (NEGATIVE); BENZODIAZEPINES URINE NEGATIVE (NEGATIVE); CANNABINOIDS URINE NEGATIVE (NEGATIVE); COCAINE METABOLITE URINE NEGATIVE (NEGATIVE); METHADONE URINE NEGATIVE (NEGATIVE); PHENCYCLIDINE URINE NEGATIVE (NEGATIVE)
[2025-04-02 15:49] LABS: OPIATES URINE NEGATIVE (NEGATIVE)
[2025-04-02 16:00] LABS: ALT/SGPT 22 U/L (7.0-40); AST/SGOT 25 U/L (<34); CALCIUM LEVEL 9.0 MG/DL (8.5-10.1); CARBON DIOXIDE LEVEL 15 MMOL/L (20-31); CHLORIDE LEVEL 111 MMOL/L (98-107); CREATININE FOR GFR 0.53 MG/DL (0.55-1.30); GLOMERULAR FILTRATION RATE > 90.0 (>51); POTASSIUM SERUM 4.6 MMOL/L (3.5-5.1); SALICYLATE LEVEL < 3.0 MG/DL (<30); SODIUM LEVEL 141 MMOL/L (136-145)
[2025-04-02 16:50] LABS: ETHYL ALCOHOL (ETHANOL) 0.053 % (0.000-0.010)
[2025-04-02] MEDS: LORazepam 0.5 MG TAB PO ONE (18:08)
[2025-04-02] MEDS ORDERED: MAALOX 30 ML SUSP *UDC PO PRN (18:45)
[2025-04-02] MEDS ORDERED: ACETAMINOPHEN 325 MG TAB PO PRN (18:45)
[2025-04-02] MEDS ORDERED: HOME MED LIST COMPLETE! XX SCH (18:45)
[2025-04-02 21:11] VITALS: BP 116/56; TEMP 97.6; O2SAT 99
[2025-04-02] MEDS: traZODone 50 MG TAB PO PRN (21:11)
[2025-04-03 06:34] VITALS: BP 121/89; TEMP 97.8; O2SAT 95
[2025-04-03] MEDS: FOLIC ACID 1 MG TAB PO SCH (09:37)
[2025-04-03] MEDS: NICOTINE 21 MG/24 HR 1 EA TRANSDERMAL TD SCH (09:37)
[2025-04-03] MEDS: THIAMINE 100 MG TAB PO SCH (09:37)
[2025-04-03] MEDS: MULTIVITAMINS/MINERALS THERAP 1 TAB PO SCH (09:37)
[2025-04-03] MEDS: CARIPRAZINE 3MG CAPSULE PO SCH (11:39)
[2025-04-03] MEDS: FLUZONE VACCINE TRIVALENT PF(25-26) 0.5ML SYRINGE IM.IMMUN ONE (11:42)
[2025-04-03] MEDS: busPIRone 5 MG TAB PO SCH (11:43)
[2025-04-03 14:20] VITALS: BP 116/84
[2025-04-03] MEDS: DIVALPROEX 250 MG TAB PO SCH (14:33)
[2025-04-03 15:14] VITALS: BP 113/63; TEMP 98.4; O2SAT 98
[2025-04-03] MEDS ORDERED: LURASIDONE HCL 20 MG TAB PO SCH (18:00)
[2025-04-03] MEDS: lamoTRIgine 25 MG TAB PO SCH (20:12)
[2025-04-03] MEDS: traZODone 25MG PER 1/2 TABLET PO PRN (20:35)
[2025-04-03 22:36] VITALS: BP 128/85
[2025-04-04 06:34] VITALS: BP 126/69
[2025-04-04 06:35] VITALS: BP 126/67; TEMP 98; O2SAT 98
[2025-04-04] MEDS: PNEUMOC 21-VAL CONJ-DIP CRM/PF 0.5 ML SYRINGE IM.IMMUN ONE (09:07)
[2025-04-04 10:36] LABS: CHOLESTEROL LEVEL 160 MG/DL (<200); CHOLESTEROL RISK RATIO 2.23 (<5); LDL CHOLESTEROL 70.5 MG/DL (<100); NON-HDL-C 88.3 MG/DL; TRIGLYCERIDES LEVEL 89 MG/DL (<150)
[2025-04-04] MEDS ORDERED: ISOVUE-370 76% 100 ML VIAL As Ordered ONE (13:09)
[2025-04-04 14:05] LABS: CALCIUM LEVEL 8.9 MG/DL (8.5-10.1); CARBON DIOXIDE LEVEL 29 MMOL/L (20-31); CHLORIDE LEVEL 109 MMOL/L (98-107); CREATININE FOR GFR 0.71 MG/DL (0.55-1.30); GLOMERULAR FILTRATION RATE > 90.0 (>51); POTASSIUM SERUM 3.9 MMOL/L (3.5-5.1); SODIUM LEVEL 143 MMOL/L (136-145)
[2025-04-04 14:07] LABS: FREE T4 1.10 NG/DL (0.89-1.76); THYROXINE (T4) 5.1 UG/DL (4.5-10.9)
[2025-04-04 14:08] LABS: T UPTAKE 38.2 % (22.5-37.0)
[2025-04-04 15:08] VITALS: BP 113/51; TEMP 98; O2SAT 99
[2025-04-04 15:54] LABS: ESTIMATED AVERAGE GLUCOSE 103.0 MG/DL (60-110)
[2025-04-04 16:39] LABS: THYROGLOBULIN ANTIBODY 15.0 U/ML (<60.0); THYROID PEROXIDASE ANTIBODY < 28.0 U/ML (<60.0)
[2025-04-04] MEDS: traZODone 100 MG TAB PO PRN (20:12)
[2025-04-05 06:44] VITALS: BP 122/83; TEMP 98.9; O2SAT 96
[2025-04-05] MEDS: IBUPROFEN 400 MG TAB PO PRN (10:58)
[2025-04-05 14:19] VITALS: BP 116/78
[2025-04-05 16:26] VITALS: BP 121/58; TEMP 97.9; O2SAT 100
[2025-04-06 06:25] VITALS: BP 102/50; TEMP 98; O2SAT 99
[2025-04-06 08:03] VITALS: BP 110/58
[2025-04-06 14:18] VITALS: BP 115/62
[2025-04-06 15:27] VITALS: BP 119/58; TEMP 98; O2SAT 100
[2025-04-06] MEDS: DIVALPROEX 250 MG TAB PO SCH (20:03)
[2025-04-07 06:46] VITALS: BP 120/95; TEMP 97.3; O2SAT 94
[2025-04-07 15:33] VITALS: BP 103/50; TEMP 97.9; O2SAT 100
[2025-04-08 06:27] VITALS: BP 120/60; TEMP 97.5; O2SAT 98
[2025-04-08] MEDS: MOM 30 ML SUSPENSION UDC PO PRN (13:44)
[2025-04-08 15:25] VITALS: BP 114/52; TEMP 98.2; O2SAT 100
[2025-04-09 06:59] VITALS: BP 133/59; TEMP 97.7; O2SAT 98
[2025-04-09] MEDS ORDERED: METH-1386 PO ×2 (09:02→09:31)
[2025-04-09] MEDS ORDERED: TRAZ-257 PO (09:31)
[2025-04-09] MEDS ORDERED: FLUO-290 PO (09:31)
[2025-04-09] MEDS ORDERED: DIVA-65 PO (09:31)
[2025-04-09] MEDS ORDERED: BUSP15TA48 PO (09:31)
[2025-04-09] MEDS ORDERED: VRAY3CAP PO (09:31)
[2025-04-09] MEDS: PILL CUTTER 1 EACH XX PRN (11:49)
== END 2025-04-09 12:31 | disposition home or self-care (01) | DRG 753 ==
LOC: M ED 14:30 → M ED INP 18:42 → M PSY 20:47
PROVIDERS: ADMIT Psychiatry & Neurology Neurology; ATTEND Psychiatry & Neurology Neurology
DX: F31.30 Bipolar disorder, current episode depressed, mild or moderate severity, unspecified (principal); F41.9 Anxiety disorder, unspecified; F10.10 Alcohol abuse, uncomplicated; R45.851 Suicidal ideations; F17.200 Nicotine dependence, unspecified, uncomplicated; Z79.899 Other long term (current) drug therapy; Z88.8 Allergy status to other drugs, medicaments and biological substances; D50.9 Iron deficiency anemia, unspecified; G47.33 Obstructive sleep apnea (adult) (pediatric); G62.9 Polyneuropathy, unspecified; G25.81 Restless legs syndrome; Z91.148 Patient's other noncompliance with medication regimen for other reason; E05.80 Other thyrotoxicosis without thyrotoxic crisis or storm